=== PATIENT | female | born 1960 | race African-American/Black ===

== ENCOUNTER 2018-07-08 14:51 | Emergency (ER) | payer OTHER ==
[2018-07-08 16:01] LABS: Absolute Lymphocytes (CBC) 3.7 K/uL (0.7-4.9); Absolute Monocytes 1.1 K/uL (0.1-1.3); Absolute Neutrophil 4.7 K/uL (1.8-8.0); Basophils % 1.1 % (0-1.3); Eosinophils % 1.4 % (0-4.4); Lymphocytes % 37.8 % (15.3-44.8); MPV 7.9 fL (7.6-11.3); Monocytes % 11.3 % (3.3-12.3); RBC Red Blood Cell Count 5.07 M/uL (3.86-4.86)
--- NOTE | 2018-07-08 16:08 | RAD REPORT ---
EXAM DESCRIPTION: RAD - Chest Pa And Lat (2 Views) - 07/08/2018 3:39 pm CLINICAL HISTORY: COUGH Chest pain. COMPARISON: No comparisons FINDINGS: The lungs are clear. The heart is normal in size. No displaced fractures. Mild dextroscoli osis of the thoracic spine. IMPRESSION: No acute intrathoracic abnormality. Moderate thoracic dextroscoliosis.
[2018-07-08 16:14] LABS: Potassium 3.4 mmol/L (3.5-5.1)
--- NOTE | 2018-07-08 16:26 | ER ---
Nurse's Notes [facility] Name: Rosana Chávez Age: 57 yrs Sex: Female : 1960 Arrival Date: 07/08/2018 Time: 14:55 Bed 18 Private MD: None, None Diagnosis: Acute upper respiratory infection, unspecified;Hypertension Presentation: 07/08 14:58 Presenting complaint: Patient states: they sent me home from work because my pressure tw2 was high like 160/100 but i started feeling bad with headache, body aches, congestion and a little cough. Transition of care: patient was not received from another setting of care. Onset of symptoms was July 08, 2018. Risk Assessment: Do you want to hurt yourself or someone else? Patient reports no desire to harm self or others. Initial Sepsis Screen: Does the patient meet any 2 criteria? No. Patient's initial sepsis screen is negative. Does the patient have a suspected source of infection? No. Patient's initial sepsis screen is negative. Care prior to arrival: None. 14:58 Method Of Arrival: Ambulatory tw2 14:58 Acuity: FABIOLA 3 tw2 Triage Assessment: 15:00 General: Appears in no apparent distress. Behavior is calm, cooperative, appropriate tw2 for age. Pain: Denies pain. Historical: - Allergies: 15:00 No Known Allergies; tw2 - Home Meds: 15:00 None [Active]; tw2 - PMHx: 15:00 None; tw2 - PSHx: 15:00 part of intestines removed; ; tw2 - Immunization history:: Adult Immunizations. - Social history:: Smoking status: Patient uses tobacco products, smokes one-half pack cigarettes per day. - Ebola Screening: : Patient denies travel to an Ebola-affected area in the 21 days before illness onset. - Family history:: not pertinent. - Hospitalizations: : No recent hospitalization is reported. Screenin:52 Abuse screen: Denies threats or abuse. Nutritional screening: No deficits noted. la1 Tuberculosis screening: No symptoms or risk factors identified. Fall Risk None identified. Assessment: 15:52 General: Appears in no apparent distress. Behavior is calm, cooperative. Pain: Denies la1 pain. Neuro: Level of Consciousness is awake, alert, obeys commands, Oriented to person, place, time, situation. Cardiovascular: Capillary refill < 3 seconds Patient's skin is warm and dry. Respiratory: Reports cough that is non-productive, dry, Airway is patent Trachea midline Respiratory effort is even, unlabored, Respiratory pattern is regular, symmetrical, Breath sounds are clear bilaterally. GI: No signs and/or symptoms were reported involving the gastrointestinal system. : No signs and/or symptoms were reported regarding the genitourinary system. Vital Signs: 14:59 BP 171 / 95; Pulse 96; Resp 18; Temp 97.4(O); Pulse Ox 100% on R/A; Pain 0/10; tw2 16:18 BP 190 / 88; Pulse 73; Resp 18; Pulse Ox 98% on R/A; la1 17:00 BP 167 / 83; Pulse 71; Resp 16; Pulse Ox 98% on R/A; la1 ED Course: 14:55 Patient arrived in ED. sb2 14:56 None, None is Private Physician. sb2 14:59 Triage completed. tw2 14:59 Arm band placed on. tw2 15:18 Serafin Javier MD is Attending Physician. rn 15:30 Urine collected: clean catch specimen, clear. dh3 15:33 Renny Gruber RN is Primary Nurse. la1 15:39 XRAY Chest Pa And Lat (2 Views) In Process Unspecified. EDMS 15:52 Call light in reach. la1 15:52 No provider procedures requiring assistance completed. Inserted saline lock: 22 gauge la1 in left antecubital area, using aseptic technique. Blood collected. 16:16 EKG done, by ED staff, reviewed by Serafin Javier MD. dh3 17:00 IV discontinued, intact, bleeding controlled, No redness/swelling at site. Pressure la1 dressing applied. Administered Medications: No medications were administered Outcome: 16:25 Discharge ordered by . rn 17:00 Discharged to home ambulatory. la1 17:00 Condition: stable 17:00 Condition: good 17:00 Discharge instructions given to patient, Instructed on discharge instructions, follow up and referral plans. medication usage, Demonstrated understanding of instructions, follow-up care, medications, Prescriptions given X 1. 17:00 Patient left the ED. la1 Signatures: Dispatcher [employer] EDMS Serafin Javier MD MD rn Attema, Lee, RN RN la1 Xiao Lowe RN RN tw2 Madeleine Gao dh3 Kim Nunez sb2
--- NOTE | 2018-07-08 16:26 | EDPHYS ---
Physician Documentation [facility] Name: Rosana Chávez Age: 57 yrs Sex: Female : 1960 Arrival Date: 07/08/2018 Time: 14:55 Bed 18 Private MD: None, None ED Physician Serafin Javier HPI: 07/08 15:58 This 57 yrs old Black Female presents to ER via Ambulatory with complaints of High rn Blood Pressure. 15:58 The patient has elevated blood pressure and discovered this work. Onset: The rn symptoms/episode began/occurred at an unknown time. Modifying factors:. Severity of symptoms: At its worst the blood pressure was moderate, in the emergency department the blood pressure is improved. It is unknown whether or not the patient has had similar symptoms in the past. Reports sent home from work today for high blood pressure, reports a couple of days of cough/nasal congestion, chills, no fever today, reports headache at work and that prompted them to check her BP, was high so sent home. No focal neurological complaint. No chest pain. No sob. Does smoke. . Historical: - Allergies: 15:00 No Known Allergies; tw2 - Home Meds: 15:00 None [Active]; tw2 - PMHx: 15:00 None; tw2 - PSHx: 15:00 part of intestines removed; ; tw2 - Immunization history:: Adult Immunizations. - Social history:: Smoking status: Patient uses tobacco products, smokes one-half pack cigarettes per day. - Ebola Screening: : Patient denies travel to an Ebola-affected area in the 21 days before illness onset. - Family history:: not pertinent. - Hospitalizations: : No recent hospitalization is reported. ROS: 15:58 Constitutional: Negative for weight loss, Eyes: Negative for injury, pain, redness, and environmental attorney, Cardiovascular: Negative for chest pain, palpitations, and edema, Respiratory: Negative for shortness of breath, wheezing, and pleuritic chest pain, Abdomen/GI: Negative for abdominal pain, nausea, vomiting, diarrhea, and constipation, MS/Extremity: Negative for injury and deformity, Skin: Negative for injury, rash, and discoloration, Neuro: Negative for weakness, numbness, tingling, and seizure. Exam: 15:58 Constitutional: This is a well developed, well nourished patient who is awake, alert, rn and in no acute distress. Sitting upright on bed, just ambulated back from bathroom. Head/Face: Normocephalic, atraumatic. Neck: Trachea midline, no thyromegaly or masses palpated, and no cervical lymphadenopathy. Supple, full range of motion without nuchal rigidity, or vertebral point tenderness. No Meningismus. Cardiovascular: Regular rate and rhythm with a normal S1 and S2. No gallops, murmurs, or rubs.No JVD. No pulse deficits. Respiratory: Lungs have equal breath sounds bilaterally, clear to auscultation. No rales, rhonchi or wheezes noted. No increased work of breathing, no retractions or nasal flaring. Abdomen/GI: Soft, non-tender, with normal bowel sounds. No distension or tympany. No guarding or rebound. No evidence of tenderness throughout. MS/ Extremity: Pulses equal, no cyanosis. Neurovascular intact. Full, normal range of motion. Equal circumference. Neuro: Awake and alert, GCS 15, oriented to person, place, time, and situation. Cranial nerves II-XII grossly intact. Motor strength 5/5 in all extremities. Sensory grossly intact. Cerebellar exam normal. Normal gait. Vital Signs: 14:59 BP 171 / 95; Pulse 96; Resp 18; Temp 97.4(O); Pulse Ox 100% on R/A; Pain 0/10; tw2 16:18 BP 190 / 88; Pulse 73; Resp 18; Pulse Ox 98% on R/A; la1 17:00 BP 167 / 83; Pulse 71; Resp 16; Pulse Ox 98% on R/A; la1 MDM: 15:18 Patient medically screened. rn 16:23 Differential diagnosis: hypertensive crisis, Malignant HTN, upper respiratory rn infection. Data reviewed: vital signs, nurses notes, lab test result(s), EKG, radiologic studies, plain films, and as a result, I will discharge patient. Counseling: I had a detailed discussion with the patient and/or guardian regarding: the historical points, exam findings, and any diagnostic results supporting the discharge/admit diagnosis, lab results, radiology results, the need for outpatient follow up, to return to the emergency department if symptoms worsen or persist or if there are any questions or concerns that arise at home. Counseling: I had a detailed discussion with the patient and/or guardian regarding: smoking cessation. Special discussion: I discussed with the patient/guardian in detail that at this point there is no indication for admission to the hospital. It is understood, however, that if the symptoms persist or worsen the patient needs to return immediately for re-evaluation. 07/08 15:27 Order name: CBC with Diff rn 07/08 15:27 Order name: Basic Metabolic Panel rn 07/08 15:27 Order name: Urine Microscopic Only rn 07/08 15:27 Order name: Flu; Complete Time: 16:22 rn 07/08 15:27 Order name: Strep; Complete Time: 16:15 rn 07/08 15:28 Order name: CBC with Automated Diff; Complete Time: 16:15 EDDC 07/08 15:27 Order name: IV Start; Complete Time: 15:53 rn 07/08 15:27 Order name: Urine Dipstick-Ancillary (obtain specimen); Complete Time: 15:46 rn 07/08 15:27 Order name: XRAY Chest Pa And Lat (2 Views); Complete Time: 16:15 rn 07/08 15:28 Order name: Basic Metabolic Panel; Complete Time: 16:15 EDDC 07/08 15:56 Order name: Urine Dipstick--Ancillary (enter results) 07/08 15:56 Order name: Urine --Ancillary (enter results) 07/08 16:12 Order name: Throat Culture [facility] 07/08 15:27 Order name: EKG - Nurse/Tech; Complete Time: 16:05 rn Administered Medications: No medications were administered Disposition: 07/08/18 16:25 Discharged to Home. Impression: Acute upper respiratory infection, unspecified, Hypertension. - Condition is Stable. - Discharge Instructions: Hypertension, Upper Respiratory Infection, Adult. - Prescriptions for Zithromax Z- Wesley 250 mg Oral Tablet - take 1 tablet by ORAL route as directed for 5 days Day 1 - take two (2) tablets one time. Day 2, 3, 4 , 5 take one (1) tablet once daily.; 6 tablet. - Medication Reconciliation Form, Thank You Letter, Antibiotic Education, Prescription Opioid Use form. - Follow up: Private Physician; When: As needed; Reason: Recheck today's complaints, Re-evaluation by your physician. - Problem is new. - Symptoms have improved. Signatures: Dispatcher [employer] EDDC Serafin Javier MD MD rn Attema, Lee, RN RN la1 Xiao Lowe RN RN tw2 Corrections: (The following items were deleted from the chart) 17:00 16:25 07/08/2018 16:25 Discharged to Home. Impression: Acute upper respiratory la1 infection, unspecified; Hypertension. Condition is Stable. Forms are Medication Reconciliation Form, Thank You Letter, Antibiotic Education, Prescription Opioid Use. Follow up: Private Physician; When: As needed; Reason: Recheck today's complaints, Re-evaluation by your physician. Problem is new. Symptoms have improved. rn
[2018-07-08 16:36] LABS: Urine Blood 2+ (NEG); Urine Glucose NEGATIVE (NEG); Urine Protein NEGATIVE (NEG)
[2018-07-08 16:44] LABS: Urine Bacteria NONE SEEN /HPF (<20)
[2018-07-08 16:45] LABS: Urine Culture Reflex Order NOT NEEDED
== END 2018-07-08 17:00 | disposition home or self-care (01) ==
LOC: ER 14:51
DX: J06.9 Acute upper respiratory infection, unspecified (principal); Z72.0 Tobacco use
CPT/HCPCS: 36415; 71046; 80048; 81003; 81015; 81025; 85025; 87070; 87081; 87804; 99284

== ENCOUNTER 2022-07-04 01:27 | Emergency (ER) | payer OTHER, SELFPAY ==
[2022-07-04] MEDS ORDERED: OXYMETAZOLINE HCL 0.05% 15ML NAS ONE (01:42)
--- NOTE | 2022-07-04 02:41 | EDPHYS ---
Physician Documentation [facility] Name: Rosana Chávez Age: 61 yrs Sex: Female : 1960 Arrival Date: 07/04/2022 Time: 01:29 Bed 5 Private MD: ED Physician Mariano Celestin HPI: 07/04 03:28 This 61 yrs old Black Female presents to ER via EMS with complaints of epistaxis. rt 03:28 The patient presents with a nose bleed, that is apparently anterior, from the left rt nare. Onset: The symptoms/episode began/occurred yesterday. Modifying factors: The symptoms are alleviated by nothing. the symptoms are aggravated by nothing. Associated signs and symptoms: The patient has no apparent associated signs or symptoms. Severity of symptoms: At their worst the symptoms were mild. Patient presents to the ED with epistaxis to the left nare. This started yesterday, resolved spontaneously, returned again overnight. The patient denies any trauma to the nose. Denies any feelings of lightheadedness. Denies other acute complaints at this time, symptoms are mild in severity, no other aggravating alleviating factors. Historical: - Allergies: 01:35 No Known Allergies; aa9 - Home Meds: 01:35 None [Active]; aa9 - PMHx: 01:35 None; aa9 - PSHx: 01:35 None; aa9 - Immunization history:: Client reports receiving the 2nd dose of the Covid vaccine. - Social history:: Smoking status: Patient reports the use of cigarette tobacco products, smokes one-half pack cigarettes per day. - Family history:: not pertinent. ROS: 03:28 Constitutional: Negative for fever, chills, and weight loss, Eyes: Negative for injury, rt pain, redness, and discharge, Cardiovascular: Negative for chest pain, palpitations, and edema, Respiratory: Negative for shortness of breath, cough, wheezing, and pleuritic chest pain, Abdomen/GI: Negative for abdominal pain, nausea, vomiting, diarrhea, and constipation, Skin: Negative for injury, rash, and discoloration, Neuro: Negative for headache, weakness, numbness, tingling, and seizure, Psych: Negative for depression, anxiety, suicide ideation, homicidal ideation, and hallucinations. 03:28 ENT: Positive for nose bleed, Negative for injury or acute deformity. Exam: 03:28 ENT: Mild amount of bleeding out of the left nare, appears to be anterior, no obvious rt durably. Vital Signs: 01:33 BP 135 / 88; Pulse 99; Resp 18 A; Pulse Ox 99% on R/A; Weight 61.23 kg (R); Height 5 aa9 ft. 5 in. (165.10 cm) (R); 02:50 BP 161 / 81; Pulse 89; Resp 19 S; Pulse Ox 99% on R/A; aa9 01:33 Body Mass Index 22.46 (61.23 kg, 165.10 cm) aa9 MDM: 01:32 Patient medically screened. rt 03:31 Differential diagnosis: epistaxis r/t trauma, spontaneous epistaxis. Data reviewed: rt vital signs, nurses notes. ED course: Patient presents to the ED with epistaxis, resolved with Afrin. Patient was observed for a brief period in the ED with no recurrence. Patient is stable for outpatient care, discussed home management. Does not require nasal packing at this time, patient will return for epistaxis that cannot be managed at home.. Administered Medications: 01:43 Drug: Afrin (oxymetazoline) Drops (0.05 %) 3 sprays Route: Intranasal; Site: both nares;kl Disposition Summary: 07/04/22 02:41 Discharge Ordered Location: Home rt Problem: new rt Symptoms: are resolved rt Condition: Stable rt Diagnosis - Epistaxis rt Followup: rt - With: Private Physician - When: 2 - 3 days - Reason: Discharge Instructions: - Discharge Summary Sheet rt - Nosebleed, Adult rt Forms: - Medication Reconciliation Form rt - Thank You Letter rt - Antibiotic Education rt - Prescription Opioid Use rt Signatures: Erika Avila, RN RN Luzma Mckeon RN RN aa9 Mariano Celestin MD MD rt
--- NOTE | 2022-07-04 02:41 | ER ---
Nurse's Notes [facility] [place], [place] Name: Rosana Chávez Age: 61 yrs Sex: Female : 1960 Arrival Date: 07/04/2022 Time: 01:29 Bed 5 Private MD: Diagnosis: Epistaxis Presentation: 07/04 01:33 Chief complaint: EMS states: had a nose bleed around noon she got it to stop then about aa9 an hour ago it started again and she couldn't get it to stop otherwise stable, no trauma. Coronavirus screen: Vaccine status: Patient reports receiving the 2nd dose of the covid vaccine. Ebola Screen: No symptoms or risks identified at this time. 01:33 Method Of Arrival: EMS: [facility] aa9 01:36 Initial Sepsis Screen: Does the patient meet any 2 criteria? No. Patient's initial aa9 sepsis screen is negative. Does the patient have a suspected source of infection? No. Patient's initial sepsis screen is negative. Risk Assessment: Do you want to hurt yourself or someone else? Patient reports no desire to harm self or others. Onset of symptoms was July 04, 2022. 01:36 Acuity: FABIOLA 3 aa9 Triage Assessment: 01:35 General: Appears in no apparent distress. uncomfortable, slender, Behavior is calm, aa9 cooperative, appropriate for age. Pain: Denies pain. EENT: Nares with bleeding noted. Neuro: Level of Consciousness is awake, alert, obeys commands, Oriented to person, place, time, situation. Cardiovascular: Capillary refill < 3 seconds Patient's skin is warm and dry. Respiratory: Airway is patent Respiratory effort is even, unlabored. GI: No signs and/or symptoms were reported involving the gastrointestinal system. : No signs and/or symptoms were reported regarding the genitourinary system. Derm: Skin is healthy with good turgor. Musculoskeletal: No signs and/or symptoms reported regarding the musculoskeletal system. Historical: - Allergies: 01:35 No Known Allergies; aa9 - Home Meds: 01:35 None [Active]; aa9 - PMHx: 01:35 None; aa9 - PSHx: 01:35 None; aa9 - Immunization history:: Client reports receiving the 2nd dose of the Covid vaccine. - Social history:: Smoking status: Patient reports the use of cigarette tobacco products, smokes one-half pack cigarettes per day. - Family history:: not pertinent. Screenin:36 Abuse screen: Denies threats or abuse. Denies injuries from another. Nutritional aa9 screening: No deficits noted. Tuberculosis screening: No symptoms or risk factors identified. 02:49 [facility] ED Fall Risk Assessment (Adult) History of falling in the last 3 months, aa9 including since admission No falls in past 3 months (0 pts) Confusion or Disorientation No (0 pts) Intoxicated or Sedated No (0 pts) Impaired Gait No (0 pts) Mobility Assist Device Used No (0 pt) Altered Elimination No (0 pt) Score/Fall Risk Level 0 - 2 = Low Risk. Assessment: 02:50 Reassessment: Patient appears in no apparent distress at this time. Patient is alert, aa9 oriented x 3, equal unlabored respirations, skin warm/dry/pink. Patient denies pain at this time. Vital Signs: 01:33 BP 135 / 88; Pulse 99; Resp 18 A; Pulse Ox 99% on R/A; Weight 61.23 kg (R); Height 5 aa9 ft. 5 in. (165.10 cm) (R); 02:50 BP 161 / 81; Pulse 89; Resp 19 S; Pulse Ox 99% on R/A; aa9 01:33 Body Mass Index 22.46 (61.23 kg, 165.10 cm) aa9 ED Course: 01:29 Patient arrived in ED. wm 01:31 Mariano Celestin MD is Attending Physician. rt 01:33 Luzma Herrera, RN is Primary Nurse. aa9 01:36 Triage completed. aa9 01:36 Arm band placed on. aa9 01:36 Patient has correct armband on for positive identification. Bed in low position. Call aa9 light in reach. quality assurance monitor on. Pulse ox on. 02:49 No provider procedures requiring assistance completed. Patient did not have IV access aa9 during this emergency room visit. Administered Medications: 01:43 Drug: Afrin (oxymetazoline) Drops (0.05 %) 3 sprays Route: Intranasal; Site: both nares;kl Medication: 01:36 VIS not applicable for this client. aa9 Outcome: 02:41 Discharge ordered by . rt 02:49 Discharged to home ambulatory. aa9 02:49 Condition: stable 02:49 Discharge instructions given to patient, Instructed on discharge instructions, follow up and referral plans. medication usage, Demonstrated understanding of instructions, follow-up care, medications, Prescriptions given X 1. 02:50 Patient left the ED. aa9 Signatures: Erika Avila RN Yasmine Esposito Aylin, RN RN aa9 Mariano Celestin MD MD rt
[2022-07-04 03:13] VITALS: O2SAT 99
[2022-07-04 03:21] VITALS: BP 161/81
== END 2022-07-04 02:50 | disposition home or self-care (01) ==
LOC: ER 01:27
DX: R04.0 Epistaxis (principal); F17.210 Nicotine dependence, cigarettes, uncomplicated
CPT/HCPCS: 99284

== ENCOUNTER 2023-09-30 16:55 | Inpatient (IN) | payer OTHER, SELFPAY ==
[2023-09-30] MEDS ORDERED: MORPHINE 4 MG/ML SYR ONE ×2 (18:44→22:04)
[2023-09-30] MEDS ORDERED: CLINDAMYCIN 900MG/D5W 900 MG/50 ML IVPB IV ONE (18:44)
[2023-09-30] MEDS ORDERED: NA CHLORIDE 0.9% 1,000 ML ONE (18:44)
--- NOTE | 2023-09-30 18:45 | RAD REPORT ---
EXAM DESCRIPTION: RAD - Chest Single View - 09/30/2023 6:28 pm CLINICAL HISTORY: SOB COMPARISON: Chest Pa And Lat (2 Views) dated 07/08/2018 FINDINGS: Lines: None. Lungs: Irregular opacities present at the right lung base . Pleural: No significant pleural effusions or pneumothorax. Cardiac: The heart size is within normal limits. Mediastinum: Within normal limits. Bones: No acute fractures. Other: None IMPRESSION: Mild right basilar airspace disease could reflect mild pneumonia or pneumonitis.
[2023-09-30 18:48] LABS: Absolute Basophils 0.1 K/uL (0-0.5); Absolute Monocytes 0.9 K/uL (0.1-1.3); Basophils % 0.3 % (0-1.3); Hematocrit 39.9 % (36.0-45.0); Hemoglobin 13.2 g/dL (12.0-15.0); Lymphocytes % 3.5 % (15.3-44.8); MCH 29.7 pg (27.0-35.0); MCHC 33.2 g/dL (32.0-36.0); MCV 89.4 fL (80-100); MPV 7.9 fL (7.6-11.3); Monocytes % 3.4 % (3.3-12.3); Neutrophils % 92.8 % (41.7-73.7); Platelets 502 thou/uL (152-406); RBC Red Blood Cell Count 4.46 M/uL (3.86-4.86); Red Cell Distribution Width 15.5 % (12.1-15.2)
[2023-09-30 18:55] LABS: PT Prothrombin Time 14.1 SECONDS (9.5-12.5); PTT, Activated Partial Thromb 31.4 SECONDS (24.3-36.9); Protime INR 1.29
[2023-09-30 19:04] LABS: Monoscreen NEG (NEG)
[2023-09-30 19:15] LABS: ALT/SGPT < 10 U/L (13-56); AST/SGOT 14 U/L (15-37); Albumin 2.9 g/dL (3.4-5.0); Albumin/Globulin Ratio 0.6 (1.1-1.8); Alkaline Phosphatase 125 U/L (45-117); Anion Gap 10.8 mEq/L (5.0-15.0); BUN Blood Urea Nitrogen 13 mg/dL (7-18); Bicarbonate 27 mEq/L (21-32); Bilirubin Total 1.6 mg/dL (0.2-1.0); Globulin 4.9 g/dL (2.3-3.5); Glomerular Filtration Rate 59 ml/min (=/>90); Glucose Level 106 mg/dL (74-106); Potassium 2.8 mEq/L (3.5-5.1); Protein, Total 7.8 g/dL (6.4-8.2); Sodium Level 136 mEq/L (136-145)
[2023-09-30 19:52] LABS: Blood Morphology Comment NOT SEEN (NOT SEEN); Platelet Estimate INCR; White Blood Cell Scan OK (OK)
[2023-09-30] MEDS ORDERED: POTASSIUM 25 MEQ EFFERV TAB ONE ×2 (20:07→22:04)
--- NOTE | 2023-09-30 21:31 | RAD REPORT ---
EXAM DESCRIPTION: CT - Soft Tissue Neck W/Contr CLINICAL HISTORY: SWELLING COMPARISON: No comparisons TECHNIQUE All CT scans are performed using dose optimization technique as appropriate and may includ e automated exposure control or mA/KV adjustment according to patient size. FINDINGS: Prevertebral edema is present as well as thickening and enlargement of the epiglottis. No abscess identified. Stranding and fluid is present around the left submandibular gland. There is also fluid extending into the musculature and deep compartments of the left neck including around the adia rnocleidomastoid and carotid space . Cervical chain lymphadenopathy is present that is probably react yakov. The parotid glands are unremarkable. Patent jugular veins. Laryngeal edema is present. Left-zana ed anterolateral skin thickening could indicate a cellulitis. Multiple periapical lucencies associated with several maxillary and mandibular teeth. No fractures id entified. Paranasal sinuses are well aerated. No mastoid effusion. Intracranial contents are partiall y imaged but grossly unremarkable. Cervical spondylosis.No thyroid nodules. IMPRESSION: Prevertebral edema and epiglottis thickening concerning for epiglottitis. Fairly diffuse cutaneous and subcutaneous thickening could indicate a cellulitis. Edema extends into the deep tissu es of the neck and surrounds the left submandibular gland and sternocleidomastoid muscle. No abscess identified. Airway narrowing is present. No abscess identified.
--- NOTE | 2023-09-30 21:34 | RAD REPORT ---
EXAM DESCRIPTION: CT - Thorax W/ Con - 09/30/2023 9:16 pm CLINICAL HISTORY: chest swelling COMPARISON: No comparisons TECHNIQUE: Dynamically enhanced axial 3 mm thick images of the chest were obtained during administra tion of <100> mL Isovue 370 IV contrast. Coronal and oblique reconstruction images were generated and reviewed. Exam utilizes a protocol for optimal evaluation of pulmonary arterial tree. Maximum intensity projections 3D imaging was utilized All CT scans are performed using dose optimization technique as appropriate and may include automated exposure control or mA/KV adjustment according to patient size. FINDINGS: Chest Wall: Edema within the neck extends down into the upper anterior chest. There is flu id interdigitating between the platysma muscle and left sternocleidomastoid. No abscess identified. 8 mm low-density left thyroid nodule which does not require follow-up. Lungs: Mild paraseptal emphysema. Pleura: No significant effusions or pneumothorax. Mediastinum/vicky: There is some edema and stranding extending into the superior mediastinum. No absce ss or gas identified. Pulmonary arteries/Aorta: No filling defect identified. No aortic aneurysm. Heart: No significant pericardial effusion. Normal heart size. Scattered coronary artery calcificatio ns. Upper abdomen: No acute abnormality. Bones: No acute abnormality. IMPRESSION: The inflammatory process in the neck extends into the superior mediastinum, midline ante rior chest wall, and left supraclavicular region. No soft tissue gas or abscess identified. The lungs are clear .
--- NOTE | 2023-09-30 21:59 | EDPHYS ---
Physician Documentation [facility] Name: Roasna Chávez Age: 62 yrs Sex: Female : 1960 Arrival Date: 09/30/2023 Time: 16:55 Bed 17 Private MD: ED Physician Nikko Leslie HPI: 09/29 18:00 This 62 yrs old Black Female presents to ER via Ambulatory with complaints of Sore cp Throat. 18:00 The patient presents with sore throat, dysphagia, of both solids and liquids. The cp patient describes throat pain as constant. 18:00 Onset: The symptoms/episode began/occurred 2 day(s) ago. cp 18:00 Associated signs and symptoms: Pertinent negatives chest pain, earache, fever, flu-like cp symptoms, headache. Historical: - Allergies: 17:19 No Known Allergies; ko1 - Home Meds: 17:19 None [Active]; ko1 - PMHx: 17:19 None; ko1 - PSHx: 17:19 section; ko1 - Immunization history:: Adult Immunizations unknown. - Social history:: Smoking status: Patient reports the use of cigarette tobacco products, smokes one pack cigarettes per day. ROS: 18:05 ENT: Positive for difficulty swallowing, sore throat, Negative for drainage from cp ear(s), ear pain, difficulty handling secretions, 18:05 Respiratory: Negative for cough, shortness of breath, wheezing, cp 18:05 Constitutional: Positive for poor PO intake, Negative for body aches, chills, fever, cp 18:05 Eyes: Negative for injury, pain, redness, and discharge, cp 18:05 Neck: Positive for swelling, tenderness, Negative for stiffness, 18:05 Cardiovascular: Negative for chest pain, palpitations, 18:05 Abdomen/GI: Negative for abdominal pain, vomiting, diarrhea, constipation, 18:05 Neuro: Negative for altered mental status, dizziness, headache, numbness, syncope, cp weakness, 18:05 All other systems are negative, cp Exam: 18:04 ECG was reviewed by the Attending Physician. cp 18:10 Constitutional: The patient appears in no acute distress, alert, awake, cp non-diaphoretic, non-toxic, well developed, well nourished, uncomfortable, 18:10 Head/face: Noted is swelling, that is mild, of the submental, cp 18:10 Eyes: Periorbital structures: appear normal, Pupils: equal, round, and reactive to light and accomodation, Extraocular movements: intact throughout, Conjunctiva: normal, no exudate, no injection, Sclera: no appreciated abnormality, Lids and lashes: appear normal, bilaterally, 18:10 ENT: External ear(s): are unremarkable, Nose: is normal, Mouth: Lips: moist, Oral mucosa: moist, Tongue: is normal, Posterior pharynx: Airway: patent, Tonsils: bilaterally enlarged, erythema, that is moderate, 18:10 Neck: External neck: swelling, of the anterior neck, ROM/movement: Meningeal signs: are not present, nuchal rigidity, is not appreciated, 18:10 Chest/axilla: Inspection: mild swelling and erythema noted upper chest wall, Palpation: cp tenderness, 18:10 Cardiovascular: Rate: tachycardic, Rhythm: regular, Edema: is not appreciated, JVD: is not appreciated, 18:10 Respiratory: the patient does not display signs of respiratory distress, Respirations: normal, no use of accessory muscles, no retractions, labored breathing, is not present, Breath sounds: are clear throughout, no decreased breath sounds, no stridor, no wheezing, 18:10 Abdomen/GI: Inspection: abdomen appears normal, Palpation: abdomen is soft and non-tender, in all quadrants, 18:10 Neuro: Orientation: to person, place \T\ time. Mentation: is normal, Motor: moves all fours, strength is normal, Vital Signs: 17:17 BP 176 / 94; Pulse 98; Resp 16; Temp 98.1; Pulse Ox 99% ; ko1 17:47 BP 179 / 80; Pulse 105; Resp 18; Pulse Ox 99% ; tl4 18:30 BP 158 / 83; Pulse 105; Resp 20; Pulse Ox 98% on R/A; tl4 19:00 BP 157 / 57; Pulse 104; Resp 21; Pulse Ox 98% on R/A; tl4 20:00 BP 169 / 83; Pulse 105; Resp 17; Pulse Ox 98% on R/A; tl4 21:13 BP 165 / 77; Pulse 98; Resp 18; Pulse Ox 99% on R/A; tl4 22:00 BP 125 / 77; Pulse 55; Resp 16; Pulse Ox 100% ; tl4 22:30 BP 146 / 60; Pulse 104; Resp 25; Pulse Ox 96% ; tl4 23:00 BP 116 / 67; Pulse 105; Resp 23; Pulse Ox 95% ; tl4 23:40 BP 118 / 61; Pulse 105; Resp 16; Temp 98.1(O); Pulse Ox 96% ; Pain 0/10; tl4 23:40 Pain Scale: Adult tl4 MDM: 17:24 Patient medically screened. cp 21:55 Data reviewed: vital signs, nurses notes, lab test result(s), EKG, radiologic studies, cp CT scan. 21:55 Management of patient was discussed with the following: Contract Implementation Analyst: DR Gao, ENT, cp will consult after discussion of today's testing and patient to be admitted to hospitalist, DR Kearney. 09/29 17:50 Order name: Blood Culture Adult (2) cp 09/29 17:50 Order name: CBC with Diff; Complete Time: 21:46 09/29 18:52 Interpretation: Normal except: WBC 28.00; PLT 502; RDW 15.5; SHILA% 92.8; LYM% 3.5; NEUT cp A 26.0. 09/29 17:50 Order name: CMP; Complete Time: 19:20 09/29 19:21 Interpretation: Normal except: K 2.8; CRE 1.07; GFR 59; AST 14; ALT < 10; ALK 125; cp BILIT 1.6; CA 8.4; ALB 2.9; GLOB 4.9; A/G 0.6. 09/29 17:50 Order name: Lactate w/ 2H reflex if indic.; Complete Time: 19:10 09/29 19:10 Interpretation: Reviewed. 09/29 17:50 Order name: Protime (+inr); Complete Time: 19:10 cp 09/29 17:50 Order name: Ptt, Activated; Complete Time: 19:10 cp 09/29 17:50 Order name: Strep; Complete Time: 19:20 cp 09/29 22:58 Interpretation: Reviewed. 09/29 17:50 Order name: [place] Screen Profile; Complete Time: 19:10 cp 09/29 19:14 Order name: Glucose, Ancillary Testing; Complete Time: 19:20 EDMS 09/29 19:52 Order name: CBC Smear Scan; Complete Time: 21:46 EDMS 09/29 17:50 Order name: Chest Single View XRAY; Complete Time: 18:52 cp 09/29 17:53 Order name: CT Soft Tissue Neck W/contr; Complete Time: 21:46 cp 09/29 17:53 Order name: CT Chest W/ Con; Complete Time: 21:46 cp 09/29 17:50 Order name: EKG; Complete Time: 17:51 cp 09/29 17:50 Order name: Accucheck; Complete Time: 19:04 cp 09/29 17:50 Order name: Cardiac monitoring; Complete Time: 18:05 cp 09/29 17:50 Order name: EKG - Nurse/Tech; Complete Time: 19:04 cp 09/29 17:50 Order name: IV Saline Lock - Large Bore; Complete Time: 18:46 cp 09/29 17:50 Order name: Labs collected and sent; Complete Time: 18:46 cp 09/29 17:50 Order name: O2 Per Protocol; Complete Time: 18:05 cp 09/29 17:50 Order name: O2 Sat Monitoring; Complete Time: 18:05 cp 09/29 17:50 Order name: Vital Signs; Complete Time: 18:05 cp EC:04 Rate is 102 beats/min. Rhythm is regular. [place] interval is normal. QRS interval is cp normal. T waves are Inverted in lead aVR. Interpreted by me. Reviewed by me. Administered Medications: 19:04 Drug: NS 0.9% IV 1000 ml IV at 999 ml/hr Per protocol; 1000 mL bolus Route: IV; Rate: tl4 999 ml/hr; Site: left antecubital; Delivery: Primary tubing; 21:37 Follow up: Response: No adverse reaction; IV Status: Completed infusion; IV Intake: tl4 1000ml 19:05 Drug: morphine IVP or IV 4 mg IVP once over 4 mins Route: IVP; Infused Over: 4 mins; tl4 Site: left antecubital; 21:36 Follow up: Response: No adverse reaction; Pain is decreased tl4 19:05 Drug: Clindamycin IVPB 900 mg IVPB once over 30 mins; (mix in 50 mL) Route: IVPB; tl4 Infused Over: 30 mins; Site: left antecubital; Delivery: Dial-a-flow; 21:37 Follow up: Response: No adverse reaction; IV Status: Completed infusion; IV Intake: tl4 100ml 20:38 Drug: Potassium PO Effervescent Tablet 50 mEq PO once; dissolve in 4 ounces of water or tl4 juice Route: PO; 21:36 Follow up: Response: No adverse reaction tl4 22:26 Not Given (pt can't tolerate itt): potassiumeffervescent tablet 25 meq PO once; tl4 dissolve in 4 ounces of water or juice 22:27 Drug: Ampicillin-Sulbactam Sodium IVPB 3 grams IVPB once over 30 mins; (mix in 100 mL tl4 NS) Route: IVPB; Infused Over: 30 mins; Site: right antecubital; Delivery: Dial-a-flow; 23:45 Follow up: Response: No adverse reaction; IV Status: Completed infusion; IV Intake: tl4 100ml 23:44 Drug: Ondansetron IVP 4 mg IVP once; over 2 minutes Route: IVP; Infused Over: 2 mins; tl4 Site: right antecubital; 23:46 Follow up: Response: No adverse reaction; Nausea is decreased tl4 23:45 Drug: morphine IVP or IV 4 mg IVP once over 4 mins Route: IVP; Infused Over: 4 mins; tl4 Site: right antecubital; 23:46 Follow up: Response: No adverse reaction; Pain is decreased tl4 23:45 Drug: Potassium Chloride IV 20 mEq IV at calculated rate once; administer over 1-2 tl4 hours Route: IV; Rate: calculated rate; Site: right antecubital; 09/30 00:15 Follow up: Response: No adverse reaction; IV Status: Completed infusion; IV Intake: tl4 100ml 09/29 23:53 Drug: Decadron - Dexamethasone IVP 10 mg IVP once Route: IVP; Site: right antecubital; tl4 09/30 00:15 Follow up: Response: No adverse reaction tl4 Disposition Summary: 09/30/23 21:58 Hospitalization Ordered Notes: Hospitalization Status: Inpatient Admission cp Provider: Yury Kearney cp Condition: Serious cp Problem: new cp Symptoms: have improved cp Bed/Room Type: Standard cp Location: Intensive Care Unit(09/30/23 23:18) rv1 Room Assignment: 3-(09/30/23 23:18) rv1 Diagnosis - Acute epiglottitis without obstruction cp - Sepsis, unspecified organism cp Forms: - Medication Reconciliation Form cp - SBAR form cp - Leadership Thank You Letter cp Signatures: Dispatcher [employer] EDMS Nikko Dallas PA PA cp Katelin Nation, RN RN ko1 Stephanie Chew rv1 Marcio Serrano RN RN tl4 Corrections: (The following items were deleted from the chart) 09/29 19:06 17:50 Urinalysis+U.LAB.BRZ ordered. EDMN EDMN 23: 21:58 Telemetry/MedSurg (Inpatient) rv1 23:18 21:58 cp rv1
--- NOTE | 2023-09-30 21:59 | ER ---
Nurse's Notes [facility] Name: Rosana Chávez Age: 62 yrs Sex: Female : 1960 Arrival Date: 09/30/2023 Time: 16:55 Bed 17 Private MD: Diagnosis: Acute epiglottitis without obstruction;Sepsis, unspecified organism Presentation: 09/29 17:17 Chief complaint: Patient states: felt throat getting irritated on , just ko1 getting worse. No other symptoms. Coronavirus screen: At this time, the client does not indicate any symptoms associated with coronavirus-19. Ebola Screen: No symptoms or risks identified at this time. Initial Sepsis Screen: Does the patient meet any 2 criteria? No. Patient's initial sepsis screen is negative. Does the patient have a suspected source of infection? No. Patient's initial sepsis screen is negative. Risk Assessment: Do you want to hurt yourself or someone else? Patient reports no desire to harm self or others. Onset of symptoms is unknown. 17:17 Method Of Arrival: Ambulatory ko1 17:17 Acuity: FABIOLA 4 ko1 Triage Assessment: 17:19 General: Appears ill, Behavior is calm, cooperative, appropriate for age. Pain: ko1 Complains of pain in sore throat. EENT: Throat is reddened. Historical: - Allergies: 17:19 No Known Allergies; ko1 - Home Meds: 17:19 None [Active]; ko1 - PMHx: 17:19 None; ko1 - PSHx: 17:19 section; ko1 - Immunization history:: Adult Immunizations unknown. - Social history:: Smoking status: Patient reports the use of cigarette tobacco products, smokes one pack cigarettes per day. Screenin:07 [facility] ED Fall Risk Assessment (Adult) History of falling in the last 3 months, tl4 including since admission No falls in past 3 months (0 pts) Confusion or Disorientation No (0 pts) Intoxicated or Sedated No (0 pts) Impaired Gait No (0 pts) Mobility Assist Device Used No (0 pt) Altered Elimination No (0 pt) Score/Fall Risk Level 0 - 2 = Low Risk Oriented to surroundings, Maintained a safe environment, Educated pt \T\ family on fall prevention, incl call for assistance when getting out of bed, Assessed \T\ reinforced patient's understanding of fall precautions, Hourly rounding (assess needs \T\ fall precautionary measures) done, Used ambulatory aids as needed (educated on \T\ assisted with), Used gait belt as appropriate. Abuse screen: Denies threats or abuse. Denies injuries from another. Nutritional screening: No deficits noted. Tuberculosis screening: No symptoms or risk factors identified. 19:09 [facility] ED Fall Risk Assessment (Adult) Score/Fall Risk Level 0 - 2 = Low Risk tl4 Provided non-skid footwear. Assessment: 17:45 General: Appears uncomfortable, Behavior is calm, cooperative. Pain: Complains of pain tl4 in throat. Neuro: Level of Consciousness is awake, alert, obeys commands, Oriented to person, place, time, situation, Moves all extremities. Denies blurred vision headache. Cardiovascular: Denies chest pain, palpitations, syncope, Capillary refill < 3 seconds Patient's skin is warm and dry. Respiratory: Reports cough that is Airway is patent Respiratory effort is even, unlabored, Respiratory pattern is regular, symmetrical, Breath sounds are clear bilaterally. Denies shortness of breath labored breathing. GI: No deficits noted. No signs and/or symptoms were reported involving the gastrointestinal system. : No deficits noted. No signs and/or symptoms were reported regarding the genitourinary system. EENT: Reports difficulty swallowing. Derm: No deficits noted. No signs and/or symptoms reported regarding the dermatologic system. 19:07 Reassessment: No changes from previously documented assessment. Patient and/or family tl4 updated on plan of care and expected duration. Pain level reassessed. Patient is alert, oriented x 3, equal unlabored respirations, skin warm/dry/pink. Pain is improving. Pt is able to talk and open her mouth more easily. 21:26 Reassessment: Patient and/or family updated on plan of care and expected duration. Pain tl4 level reassessed. Patient is alert, oriented x 3, equal unlabored respirations, skin warm/dry/pink. Pt states she feels better, able to speak and open mouth better. 21:33 Reassessment: Daughter Rina [phone]. tl4 23:44 Reassessment: Patient and/or family updated on plan of care and expected duration. Pain tl4 level reassessed. Patient is alert, oriented x 3, equal unlabored respirations, skin warm/dry/pink. 09/30 00:13 Reassessment: Report to ABDIAZIZ Sanderson in ICU. tl4 Vital Signs: 09/29 17:17 BP 176 / 94; Pulse 98; Resp 16; Temp 98.1; Pulse Ox 99% ; ko1 17:47 BP 179 / 80; Pulse 105; Resp 18; Pulse Ox 99% ; tl4 18:30 BP 158 / 83; Pulse 105; Resp 20; Pulse Ox 98% on R/A; tl4 19:00 BP 157 / 57; Pulse 104; Resp 21; Pulse Ox 98% on R/A; tl4 20:00 BP 169 / 83; Pulse 105; Resp 17; Pulse Ox 98% on R/A; tl4 21:13 BP 165 / 77; Pulse 98; Resp 18; Pulse Ox 99% on R/A; tl4 22:00 BP 125 / 77; Pulse 55; Resp 16; Pulse Ox 100% ; tl4 22:30 BP 146 / 60; Pulse 104; Resp 25; Pulse Ox 96% ; tl4 23:00 BP 116 / 67; Pulse 105; Resp 23; Pulse Ox 95% ; tl4 23:40 BP 118 / 61; Pulse 105; Resp 16; Temp 98.1(O); Pulse Ox 96% ; Pain 0/10; tl4 23:40 Pain Scale: Adult tl4 ED Course: 16:59 Patient arrived in ED. rg4 17:19 Triage completed. ko1 17:19 Arm band placed on right wrist. Patient placed in waiting room, Patient notified of ko1 wait time. 17:22 Nikko Leslie MD is Attending Physician. joselyn 17:23 Nikko Dallas PA is PHCP. cp 17:23 Nikko Leslie MD is Attending Physician. cp 17:45 Marcio Serrano, ABDIAZIZ is Primary Nurse. tl4 18:29 Chest Single View XRAY In Process Unspecified. EDMS 18:46 [place] Screen Profile Sent. tl4 18:46 Strep Sent. tl4 18:46 Blood Culture Adult (2) Sent. tl4 18:46 CBC with Diff Sent. tl4 18:46 CMP Sent. tl4 18:46 Lactate w/ 2H reflex if indic. Sent. tl4 18:46 Ptt, Activated Sent. tl4 18:46 Protime (+inr) Sent. tl4 19:06 Inserted saline lock: 22 gauge in left antecubital area, using aseptic technique. Blood tl4 collected. 19:08 Patient has correct armband on for positive identification. Placed in gown. Bed in low tl4 position. Call light in reach. Side rails up X2. Provided Education on: ED process. Client placed on continuous cardiac and pulse oximetry monitoring. NIBP monitoring applied. camera systems engineer on. Door closed. Noise minimized. Lights dimmed. Moved to private room. Warm blanket given. 19:08 No provider procedures requiring assistance completed. tl4 20:38 IV discontinued, intact, bleeding controlled, Pressure dressing applied, IV infiltrated tl4 in CT scan. Swelling decreased with pressure dressing. 20:50 Inserted saline lock: 20 gauge in right antecubital area, using aseptic technique. nj1 ,using aseptic technique. Ultrasound guided. Catheter tip well visualized within vasculature during placement. 21:16 CT Soft Tissue Neck W/contr In Process Unspecified. EDMS 21:16 CT Chest W/ Con In Process Unspecified. EDMS 21:57 Yury Kearney is Hospitalizing Provider. cp Administered Medications: 19:04 Drug: NS 0.9% IV 1000 ml IV at 999 ml/hr Per protocol; 1000 mL bolus Route: IV; Rate: tl4 999 ml/hr; Site: left antecubital; Delivery: Primary tubing; 21:37 Follow up: Response: No adverse reaction; IV Status: Completed infusion; IV Intake: tl4 1000ml 19:05 Drug: morphine IVP or IV 4 mg IVP once over 4 mins Route: IVP; Infused Over: 4 mins; tl4 Site: left antecubital; 21:36 Follow up: Response: No adverse reaction; Pain is decreased tl4 19:05 Drug: Clindamycin IVPB 900 mg IVPB once over 30 mins; (mix in 50 mL) Route: IVPB; tl4 Infused Over: 30 mins; Site: left antecubital; Delivery: Dial-a-flow; 21:37 Follow up: Response: No adverse reaction; IV Status: Completed infusion; IV Intake: tl4 100ml 20:38 Drug: Potassium PO Effervescent Tablet 50 mEq PO once; dissolve in 4 ounces of water or tl4 juice Route: PO; 21:36 Follow up: Response: No adverse reaction tl4 22:26 Not Given (pt can't tolerate itt): potassiumeffervescent tablet 25 meq PO once; tl4 dissolve in 4 ounces of water or juice 22:27 Drug: Ampicillin-Sulbactam Sodium IVPB 3 grams IVPB once over 30 mins; (mix in 100 mL tl4 NS) Route: IVPB; Infused Over: 30 mins; Site: right antecubital; Delivery: Dial-a-flow; 23:45 Follow up: Response: No adverse reaction; IV Status: Completed infusion; IV Intake: tl4 100ml 23:44 Drug: Ondansetron IVP 4 mg IVP once; over 2 minutes Route: IVP; Infused Over: 2 mins; tl4 Site: right antecubital; 23:46 Follow up: Response: No adverse reaction; Nausea is decreased tl4 23:45 Drug: morphine IVP or IV 4 mg IVP once over 4 mins Route: IVP; Infused Over: 4 mins; tl4 Site: right antecubital; 23:46 Follow up: Response: No adverse reaction; Pain is decreased tl4 23:45 Drug: Potassium Chloride IV 20 mEq IV at calculated rate once; administer over 1-2 tl4 hours Route: IV; Rate: calculated rate; Site: right antecubital; 09/30 00:15 Follow up: Response: No adverse reaction; IV Status: Completed infusion; IV Intake: tl4 100ml 09/29 23:53 Drug: Decadron - Dexamethasone IVP 10 mg IVP once Route: IVP; Site: right antecubital; tl4 09/30 00:15 Follow up: Response: No adverse reaction tl4 Medication: 09/29 19:07 VIS not applicable for this client. tl4 Intake: 21:37 IV: 100ml; Total: 100ml. tl4 21:37 IV: 1000ml; Total: 1100ml. tl4 23:45 IV: 100ml; Total: 1200ml. tl4 09/30 00:15 IV: 100ml; Total: 1300ml. tl4 Outcome: 09/29 21:58 Decision to Hospitalize by Provider. cp 09/30 00:14 Admitted to ICU accompanied by nurse, via wheelchair, room 3, with chart, Report called tl4 to ABDIAZIZ Sanderson Condition: stable Instructed on the need for admit, 00:14 Patient left the ED. tl4 Signatures: Dispatcher [employer] EDMS Nikko Leslie MD MD cha Page, Corey, PA Naatsha Marquez cp rg4 Katelin Nation, RN RN ko1 Alina Vázquez, ABDIAZIZ RN nj1 Marcio Serrano RN RN tl4 Corrections: (The following items were deleted from the chart) 09/29 19:06 18:46 Urinalysis+U.LAB.BRZ drawn and sent. tl4 EDMS 22:27 22:27 Ampicillin-Sulbactam Sodium IVPB 3 grams IVPB in right antecubital over 30 mins tl4 tl4 23:44 23:40 BP 121 / 75; Pulse 56bpm; Resp 16bpm; Pulse Ox 100%; Temp 98.1F Oral; Pain 0/10, tl4 Adult; tl4
[2023-09-30] MEDS ORDERED: dexAMETHasone 10 MG/ML VIAL ONE (22:03)
[2023-09-30] MEDS ORDERED: AMPICILLIN/SULBACTAM 3GM/VIAL ONE (22:03)
[2023-09-30] MEDS ORDERED: NA CHLORIDE 0.9% 100 ML ONE (22:04)
[2023-09-30] MEDS ORDERED: ONDANSETRON 4 MG/2 ML VIAL ONE (22:29)
[2023-09-30] MEDS ORDERED: KCL 20 MEQ/100 mL IVPB 100 ML IV ONE (22:30)
--- NOTE | 2023-09-30 23:42 | P.HP ---
Certification for Inpatient Patient admitted to: Inpatient With expected LOS: >2 Midnights Practitioner: I am a practitioner with admitting privileges, knowledge of patient current condition, hospital course, and medical plan of care. Services: Services provided to patient in accordance with Admission requirements found in Title 42 Section 412.3 of the Code of Federal Regulations Patient History Date of Service: 09/30/23 Reason for admission: Neck pain, painful swallowing History of Present Illness: 62-year-old woman with no known past medical history presents to the emergency department with a complaint Of bilateral neck pain, painful swallowing and difficulty swallowing, symptom onset about 3 days ago, associated fever. Patient denies any shortness of breath. Patient reports her daughter was recently diagnosed with dental abscess. CT soft tissue of the neck done in the ED demonstrated severe cellulitis involving the neck region, submandibular area sternocleidomastoid muscle, around the carotids, the deep neck structures demonstrating edema. ENT Dr. Gao evaluated patient in the ED, source of infection likely related to dental infection and recommended antibiotics-Unasyn, clindamycin, steroid and close monitoring. Patient is admitted to the ICU for close monitoring. Home medications list reviewed: Yes (None) - Past Medical/Surgical History Diabetic: No -: None - Family History Mother -: Hypertension - Social History Smoking Status: Current every day smoker Alcohol use: Yes CD- Drugs: No Place of Residence: Home Review of Systems Other: Except as documented, all other systems reviewed and negative. Physical Examination - Physical Exam General: Alert, In no apparent distress, Oriented x3 HEENT: Other (Submandibular area swollen) Neck: Supple, Other (Entire neck is swollen) Respiratory: Clear to auscultation bilaterally, Normal air movement Cardiovascular: No edema, Regular rate/rhythm, Normal S1 S2 Capillary refill: <2 Seconds Gastrointestinal: Normal bowel sounds, Soft and benign, Non-distended, No tenderness Musculoskeletal: No swelling, No tenderness Integumentary: No cyanosis, Other (Erythema noted in the neck and sternal area) Neurological: Normal speech, Normal strength at 5/5 x4 extr, Cranial nerves 3-12 intact Lymphatics: No axilla or inguinal lymphadenopathy - Studies Laboratory Data (last 24 hrs) 09/30/23 09/30/23 09/30/23 18:30 18:30 18:30 WBC 28.00 H Hgb 13.2 Hct 39.9 Plt Count 502 H PT 14.1 H INR 1.29 APTT 31.4 Sodium 136 Potassium 2.8 L BUN 13 Creatinine 1.07 H Glucose 106 Total Bilirubin 1.6 H AST 14 L ALT < 10 L Alkaline Phosphatase 125 H Microbiology Data (last 24 hrs): 09/30/23 18:14 Throat Group A Streptococcus Rapid Screen - Final Assessment and Plan - Problems (Diagnosis) (1) Acute epiglottitis Current Visit: Yes Status: Acute (2) Cellulitis, neck Current Visit: Yes Status: Acute (3) Dental infection Current Visit: Yes Status: Acute (4) Elevated blood pressure reading Current Visit: Yes Status: Acute - Plan Admit to the ICU ENT input appreciated Start IV Unasyn and clindamycin Analgesics-IV morphine IV dexamethasone Monitor closely for airway compromise Hydrate with IV fluid. Monitor CBC to follow leukocytosis Follow blood cultures. Hydralazine as needed for BP spikes. - Advance Directives Does patient have a Living Will: No Does patient have a Durable POA for Healthcare: No
[2023-10-01] MEDS: D5 0.9 NS 1,000 ML IV SCH (00:25)
[2023-10-01] MEDS ORDERED: CLINDAMYCIN 600MG/D5W 50 ML IV ONE ×4 (00:32→15:26)
[2023-10-01] MEDS: HEPARIN 5000 UNIT/ML 1 ML VIAL SQ SCH (00:56)
[2023-10-01] MEDS: CLINDAMYCIN INJ 600 MG in NA CHLORIDE 0.9% 50 ML IV SCH ×2 (00:57)
--- NOTE | 2023-10-01 01:04 | CON ---
Date of Consultation: 09/30/2023 Reason For Consultation: Epiglottitis. History Of Present Illness: Ms. Chávez is a 62-year-old female, who came in today c omplaining of a 3-day history of progressive and worsening sore throat and neck swelling. She denies any significant past medical history in regard to diabetes, heart problems, lung problems. She was not having any significant fevers, but due to the difficulty swallowing and progression of her sympto ms, she came to the emergency room for further evaluation. At that time, she was evaluated including a CT of the neck with contrast and laboratory studies, which will be further discussed below. Past Medical History: None. Past Surgical History: section and exploratory laparotomy with possible partial bowel resec tion for obstruction. Details are uncertain, but I would suspect abdominal adhesions may have caused some issues. Allergies: NONE. Home Medications: None. Physical Examination: The patient is in no acute distress. Her face is normocephalic and symmetric in regard to strength. Her pupils are equal, round, and reactive. Her external nose and external ears are unremarkable. H er mouth demonstrates trismus of about 2 to 2.5 cm with fetid breath. Her teeth show multiple caviti es and fillings. Her oropharynx appears swollen, which is worse on the left side. Her floor of mout h is mildly elevated, but not discretely tender nor indurated. She has very prominent submandibular swelling, which is slightly worse on the left side. She has cellulitis and soft tissue edema extendi ng to the left neck and the upper chest with mild to moderate erythema of the upper chest. Imaging And Laboratory Studies: The patient's glucose is 106. Her BUN and creatinine are normal. H er WBC is elevated at 28K. Her potassium was mildly decreased. CT images are personally reviewed an d show significant soft tissue edema including fat stranding of the neck, which is worse on the left side and extending down into the mediastinum. There is no discrete fluid collection noted. There is edema of the left oropharynx and mild edema of the epiglottis. On additional personal review of josé antonio ges, there are periapical lucencies around the left posterior mandibular teeth, which I suspect is th e nidus for this infection. Assessment: Odontogenic infection, dental abscess, cellulitis of the deep neck space and upper chest . Plan: As there is no discernible drainable abscess at this time, the patient can continue a clear li quid diet. I recommend continuing the IV Unasyn and IV clindamycin and admitting the patient for at least observation to ensure improvement with medical therapy. If the patient is significantly improv ing, we can transition to oral outpatient antibiotics and encourage the patient for urgent evaluation and dental treatment to control the source of her infection. If she is not improving on medical the rapy, she may require transfer to a facility with an oral surgeon to provide urgent extractions to co ntrol the source of this infection. During my in-person evaluation, the patient does not appear to h ave any acute need for airway intervention as she is controlling her secretions, unable to speak with out significant difficulty. I will continue to follow the patient during her hospital stay. PRADIP Voice ID: [id number] Report ID: [id number]
[2023-10-01] MEDS ORDERED: AMPICILLIN/SULBACTAM 3GM/VIAL ONE ×4 (04:01→22:23)
[2023-10-01] MEDS ORDERED: NA CHLORIDE 0.9% 100 ML ONE ×4 (04:03→22:23)
[2023-10-01] MEDS: AMPICILLIN/SULBACT 3 GM in NA CHLORIDE 0.9% 100 ML IVPB SCH ×2 (04:06)
[2023-10-01 05:02] LABS: Sqamous Epithelial <5 /HPF (None Seen); Urine Bacteria 20-50 /HPF (<20); Urine Bilirubin NEGATIVE (Negative); Urine Blood 3+ (Negative); Urine Clarity Clear (Clear); Urine Color Light-Yellow (Yellow); Urine Culture Reflex Order NOT NEEDED; Urine Glucose NEGATIVE (Negative); Urine Ketones NEGATIVE (Negative); Urine Microscopic Reflex YN ORDER UMIC; Urine Mucus 3+ /HPF (None Seen); Urine Nitrite NEGATIVE (Negative); Urine Protein TRACE (Negative); Urine Urobilinogen Normal (Normal); Urine WBC <5 /HPF (<5); Urine pH 5.5 (5.0-7.0)
[2023-10-01 05:15] LABS: Specific Gravity > 1.030 (1.005-1.030)
[2023-10-01] MEDS ORDERED: dexAMETHasone 4 MG/ML VIAL ONE ×3 (05:16→20:43)
[2023-10-01 05:29] LABS: Absolute Eosinophils 0.1 K/uL (0-0.5); Absolute Lymphocytes (CBC) 0.8 K/uL (0.7-4.9); Absolute Monocytes 0.7 K/uL (0.1-1.3); Absolute Neutrophil 29.7 K/uL (1.8-8.0); Basophils % 0.2 % (0-1.3); Eosinophils % 0.4 % (0-4.4); Hematocrit 37.3 % (36.0-45.0); Hemoglobin 12.6 g/dL (12.0-15.0); Lymphocytes % 2.6 % (15.3-44.8); MCH 30.4 pg (27.0-35.0); MCHC 33.8 g/dL (32.0-36.0); MCV 90.1 fL (80-100); MPV 7.8 fL (7.6-11.3); Monocytes % 2.2 % (3.3-12.3); Neutrophils % 94.6 % (41.7-73.7); Platelets 433 thou/uL (152-406); RBC Red Blood Cell Count 4.15 M/uL (3.86-4.86); Red Cell Distribution Width 15.8 % (12.1-15.2)
[2023-10-01 05:48] LABS: Anion Gap 10.2 mEq/L (5.0-15.0); Phosphorus 2.4 mg/dL (2.5-4.9)
[2023-10-01 05:50] LABS: Magnesium 1.9 mg/dL (1.6-2.4); Potassium 3.2 mEq/L (3.5-5.1)
[2023-10-01] MEDS: POTASSIUM PHOS IN 0.9 % NACL 15 MMOL/250 ML BAG IV ONE (07:51)
[2023-10-01] MEDS ORDERED: MORPHINE 2 MG/ML SYR ONE ×2 (08:32→14:06)
[2023-10-01] MEDS: MORPHINE 2 MG/ML SYR IV PRN (09:44)
[2023-10-01 10:43] LABS: Band Neutrophils 17 % (0-1); Blood Morphology Comment NOT SEEN (NOT SEEN); Differential Total Cells Count 100; Dohle Bodies PRESENT; Lymphocytes 5 % (15-42); Monocytes 5 % (0-10); Myelocytes 1 % (0-0); Platelet Estimate INCR; Segmented Neutrophils 72 % (40-80); Toxic Granulation 1+
[2023-10-01] MEDS: CLINDAMYCIN 600MG/D5W 50 ML IV SCH (13:00)
--- NOTE | 2023-10-01 13:49 | P.PN ---
Subjective Date of Service: 10/01/23 Patient states she is feeling much better. Patient with significant dental caries and was secondary infection of the soft tissue of the neck. At this time, will continue with IV steroids and IV antibiotics. Review of Systems 10-point ROS is otherwise unremarkable Physical Examination - Vital Signs Temperature: 97.6 F Blood Pressure: 163/79 Pulse: 105 Respirations: 24 Pulse Ox (%): 95 - Physical Exam General: Alert, In no apparent distress, Oriented x3 HEENT: Other (Generalized dental caries diffusely) Neck: Other (Erythema and edema) Respiratory: Clear to auscultation bilaterally, Normal air movement Cardiovascular: Regular rate/rhythm, Normal S1 S2, No murmurs Gastrointestinal: Normal bowel sounds, Soft and benign, Non-distended, No tender ness Musculoskeletal: No clubbing, No swelling, No tenderness Neurological: Sensation intact, Cranial nerves 3-12 intact - Studies Laboratory Data (last 24 hrs) 09/30/23 09/30/23 09/30/23 18:30 18:30 18:30 WBC 28.00 H Hgb 13.2 Hct 39.9 Plt Count 502 H PT 14.1 H INR 1.29 APTT 31.4 Sodium 136 Potassium 2.8 L BUN 13 Creatinine 1.07 H Glucose 106 Total Bilirubin 1.6 H AST 14 L ALT < 10 L Alkaline Phosphatase 125 H Microbiology Data (last 24 hrs): 09/30/23 18:14 Throat Group A Streptococcus Rapid Screen - Final Medications List Reviewed: Yes Assessment & Plan - Problems (Diagnosis) (1) Acute epiglottitis Current Visit: Yes Status: Acute (2) Cellulitis, neck Current Visit: Yes Status: Acute (3) Dental infection Current Visit: Yes Status: Acute (4) Uncontrolled hypertension Current Visit: Yes Status: Acute - Plan Plan: 1. Patient with dental caries and secondary cellulitis of the neck with questionable epiglottitis. Appreciate ENT assistance in patient's care. Continue with IV antibiotics and pain control. Patient will need referral to follow-up with oral maxillofacial surgery for tooth extraction. At this time, patient clinically doing well and patient should be stable for discharge over the next 48 to 72 hours. 2. Hypertension; continue with strict blood pressure control. Patient's hemodynamically stable. Will monitor in ICU and then will downgrade in the morning. Possible discharge over the next 48 hours. Discharge Plan: Home Plan to discharge in: Greater than 2 days - Advance Directives Does patient have a Living Will: No Does patient have a Durable POA for Healthcare: No - Code Status/Comfort Care Code Status Assessed: Yes Code Status: Full Code Critical Care: No Time Spent Managing PTS Care (In Minutes): 35
[2023-10-01] MEDS ORDERED: HYDROCODONE/APAP 10/325 TAB PO PRN (15:13)
[2023-10-01] MEDS ORDERED: NA CHLORIDE 0.9% 1,000 ML ONE (15:25)
[2023-10-01] MEDS ORDERED: HEPARIN 5000 UNIT/ML 1 ML VIAL ONE (15:26)
[2023-10-01] MEDS: NA CHLORIDE 0.9% 1,000 ML IV SCH (15:37)
[2023-10-01] MEDS: VANCOMYCIN 1.25 GM in NA CHLORIDE 0.9% 250 ML IVPB SCH (15:38)
[2023-10-01] MEDS ORDERED: KETOROLAC 30 MG/ML INJ ONE (16:19)
[2023-10-01] MEDS: KETOROLAC 30 MG/ML INJ IV PRN (16:20)
[2023-10-01] MEDS: dexAMETHasone 4 MG/ML VIAL IV SCH ×2 (20:44)
[2023-10-02] MEDS ORDERED: KETOROLAC 30 MG/ML INJ ONE (00:33)
[2023-10-02] MEDS ORDERED: CLINDAMYCIN 600MG/D5W 50 ML IV ONE ×4 (00:45→19:19)
[2023-10-02] MEDS ORDERED: ONDANSETRON 4 MG/2 ML VIAL ONE ×3 (02:04→22:49)
[2023-10-02] MEDS: ONDANSETRON 4 MG/2 ML VIAL IV PRN (02:07)
[2023-10-02] MEDS ORDERED: AMPICILLIN/SULBACTAM 3GM/VIAL ONE ×4 (04:04→21:23)
[2023-10-02] MEDS ORDERED: NA CHLORIDE 0.9% 100 ML ONE ×4 (04:04→21:23)
[2023-10-02 05:23] LABS: Absolute Lymphocytes (CBC) 1.1 K/uL (0.7-4.9); Absolute Monocytes 0.6 K/uL (0.1-1.3); Absolute Neutrophil 39.7 K/uL (1.8-8.0); Basophils % 0.1 % (0-1.3); Hematocrit 35.6 % (36.0-45.0); Hemoglobin 11.8 g/dL (12.0-15.0); Lymphocytes % 2.6 % (15.3-44.8); MCH 29.8 pg (27.0-35.0); MCHC 33.1 g/dL (32.0-36.0); MCV 90.2 fL (80-100); MPV 8.7 fL (7.6-11.3); Monocytes % 1.4 % (3.3-12.3); Neutrophils % 95.9 % (41.7-73.7); Platelets 478 thou/uL (152-406); RBC Red Blood Cell Count 3.94 M/uL (3.86-4.86); Red Cell Distribution Width 15.8 % (12.1-15.2)
[2023-10-02 05:58] LABS: AST/SGOT 17 U/L (15-37); Albumin/Globulin Ratio 0.4 (1.1-1.8); Alkaline Phosphatase 115 U/L (45-117); Anion Gap 11.8 mEq/L (5.0-15.0); BUN Blood Urea Nitrogen 33 mg/dL (7-18); Bicarbonate 23 mEq/L (21-32); Bilirubin Total 0.9 mg/dL (0.2-1.0); Globulin 4.6 g/dL (2.3-3.5); Glomerular Filtration Rate 38 ml/min (=/>90); Glucose Level 124 mg/dL (74-106); Magnesium 1.7 mg/dL (1.6-2.4); Phosphorus 4.1 mg/dL (2.5-4.9); Potassium 2.8 mEq/L (3.5-5.1); Protein, Total 6.6 g/dL (6.4-8.2); Sodium Level 139 mEq/L (136-145)
[2023-10-02 06:03] LABS: ALT/SGPT < 10 U/L (13-56)
[2023-10-02 06:20] VITALS: BMI 25.6
[2023-10-02] MEDS ORDERED: KCL 20 MEQ/100 mL IVPB 100 ML IV ONE ×3 (06:29→16:16)
[2023-10-02] MEDS: KCL 20 MEQ/100 mL IVPB 20 MEQ/100 ML BAG IV SCH ×2 (06:30→16:20)
--- NOTE | 2023-10-02 07:05 | P.PN ---
Date of Service: 10/01/23 HD 1 Patient see around 10AM. Tolerating secretions and ice chips. Subjectively mildly improved. Exam with persistent mild tachycardia (100-105), RR 35. Stable but persistent significant submandibular and left neck edema and induration. FOM flat, stable. Trismus of about 2 -2.5cm. Patient with about 12 h of IV Abx and steroids with neck cellulitis including deep neck space, likely odotogenic source. No acute surgical intervention indicated. Ok to advance to [facility] as tolerated. Continue Clinda and Unasyn and steroids and reassess on Monday - if not improved with 36h of IV Abx, consider transfer for OMFS access for source control.
[2023-10-02] MEDS: MAGNESIUM SULFATE 1 gm IVPB 1 GM/100 ML BAG IV ONE (07:48)
--- NOTE | 2023-10-02 07:51 | P.PN ---
Date of Service: 10/02/23 HD 2 Patient seen around 7AM. Tolerating secretions and ice chips, tolerating clear liquids better compared to yesterday. Subjectively improving with improved ease and pain of swallowing. Requesting to advance diet, complaining of hunger. PE: Stable but persistent significant submandibular and left neck edema and slightly improvement of degree of induration. FOM flat, stable. Mild erythema of upper chest with excoriations and palpable calor. Improvment in Trismus with mouth opening now +3cm and improved/spontaneous tongue extrusion. HR 96. RR 21. Sats 97. WBC leukocytotis with bands continues to increase (28 to 31 to 41) but unclear what degree is demarginalization from IV steroids. Additionally, her pro- calcitonin is significantly elevated raising concern for sepsis but none was ordered at admission. Patient with about 36 h of IV Abx and steroids with neck cellulitis including deep neck space, likely odotogenic source. No acute surgical intervention indicated as not definitive soft tissue abscess is noted at this time. I am concerned about the degree of persistent swelling and spoke with hospitalist team regarding possible need for source control. They will plan to consult OMFS to see if consultation is feasible locally. Continue Clinda and Unasyn for now. D/C steroids in case this is contributing to progressive leukocytosis. In regards to concern for sepsis, the patient's BP remains normal and her tachycardia is mild to slightly improved compared to yesterday. In total, I spent 30 minutes in review of chart, communication with nursing and hospitalist staff and documentation
[2023-10-02 08:07] LABS: Differential Total Cells Count 100; Hypersegmented Neutrophils PRESENT; Lymphocytes 3 % (15-42); Monocytes 1 % (0-10); Platelet Estimate ADEQ; Segmented Neutrophils 96 % (40-80); Toxic Granulation PRESENT
[2023-10-02 08:08] LABS: Blood Morphology Comment NOT SEEN (NOT SEEN)
[2023-10-02 08:09] LABS: Dohle Bodies PRESENT
[2023-10-02] MEDS ORDERED: VANCOMYCIN 1 GM/VIAL ONE (14:05)
[2023-10-02] MEDS ORDERED: METOCLOPRAMIDE 10 MG/2mL INJ ONE (14:05)
[2023-10-02] MEDS ORDERED: NA CHLORIDE 0.9% 250 ML ONE (14:05)
[2023-10-02] MEDS: VANCOMYCIN 1 GM in NA CHLORIDE 0.9% 250 ML IVPB SCH (14:07)
[2023-10-02] MEDS: METOCLOPRAMIDE 10 MG/2mL INJ IV SCH (14:07)
--- NOTE | 2023-10-02 14:19 | EKG ---
Test Date: 2023-09-30 Test Time: 17:57:56 Sourcing Consultant: TL MEASUREMENT RESULTS: Intervals: Rate: 102 NH: 150 QRSD: 82 QT: 372 QTc: 484 [place]: P: 72 NH: 150 QRS: 14 T: 65 INTERPRETIVE STATEMENTS: Sinus tachycardia with fusion complexes Otherwise normal ECG Compared to ECG 04/17/2002 12:04:00 Fusion complex(es) now present Sinus rhythm no longer present Myocardial infarct finding no longer present Electronically Signed On 10-02-23 14:14:42 CDT by Kory Luna
[2023-10-02] MEDS ORDERED: HEPARIN 5000 UNIT/ML 1 ML VIAL ONE (16:15)
--- NOTE | 2023-10-02 18:44 | P.PN ---
Subjective Date of Service: 10/02/23 Patient is doing much better today. She states she is able to eat and talk much better. Spoke with ENT regarding patient's clinical status, and we discussed getting oral maxillofacial surgery on board. I spoke with Dr. Alberto, and he states he is available if patient's condition worsens he can do a tooth extraction while she is here. Otherwise, if she continues to improve he would prefer to do this outpatient. I will keep him updated on patient's clinical status. Patient has been afebrile. She tells me she feels much better and she clinically looks better. However, patient does have a leukocytosis. Will continue to monitor closely. Review of Systems 10-point ROS is otherwise unremarkable Physical Examination - Vital Signs Temperature: 97.4 F Blood Pressure: 146/68 Pulse: 100 Respirations: 18 Pulse Ox (%): 99 - Physical Exam General: Alert, In no apparent distress, Oriented x3 HEENT: Atraumatic, PERRLA, Other (Dental caries extensively through the mandibular teeth), EOMI Neck: Other (Erythema which extends to the chest wall with minimal tenderness) Respiratory: Clear to auscultation bilaterally, Normal air movement Cardiovascular: Regular rate/rhythm, Normal S1 S2, Systolic murmur Gastrointestinal: Normal bowel sounds, Soft and benign, Non-distended, No tenderness Musculoskeletal: No clubbing, No swelling, No tenderness Integumentary: No rashes Neurological: Sensation intact, Cranial nerves 3-12 intact - Studies Medications List Reviewed: Yes Assessment & Plan - Problems (Diagnosis) (1) Acute epiglottitis Current Visit: Yes Status: Acute (2) Cellulitis, neck Current Visit: Yes Status: Acute (3) Dental infection Current Visit: Yes Status: Acute (4) Uncontrolled hypertension Current Visit: Yes Status: Acute - Plan Plan: 1. Patient with dental caries extensively involving the mandibular teeth and with secondary cellulitis of the neck with questionable epiglottitis. Patient's clinical symptoms have improved significantly. Patient is able to talk much better and she is eating today. She has been afebrile. She has developed a leukocytosis. Appreciate ENT assistance in patient's care. At this time, we will continue with IV antibiotics and pain control. Also spoke with oral maxillofacial surgery, Dr. Alberto, who states that he would be available for tooth extraction if necessary. However, it is difficult to do at the hospital because of the equipment that he has to work with-preference would be to treat the infection in the hospital and get it under control and then follow-up in his office for tooth extraction. 2. Hypertension; continue with strict blood pressure control. Patient's hemodynamically stable. Will monitor in ICU and then will downgrade in the morning. 3. Acute renal insufficiency; will back off on using Toradol and steroids. Will continue acetaminophen for pain control. Possibly increase tubular secretions. 4. Leukocytosis; most likely related to his steroids along with neck cellulitis. Continue with antibiotic therapy. Repeat labs in the morning 5. GI/DVT prophylaxis Discharge Plan: Home Plan to discharge in: Greater than 2 days - Advance Directives Does patient have a Living Will: No Does patient have a Durable POA for Healthcare: No - Code Status/Comfort Care Code Status: Full Code Critical Care: No Time Spent Managing PTS Care (In Minutes): 35
[2023-10-02] MEDS ORDERED: NA CHLORIDE 0.9% 1,000 ML ONE (21:23)
[2023-10-02] MEDS ORDERED: HYDROCODONE/APAP 10/325 TAB ONE (23:04)
[2023-10-02] MEDS: HYDROCODONE/APAP 10/325 TAB PO PRN (23:05)
[2023-10-03] MEDS ORDERED: CLINDAMYCIN 600MG/D5W 50 ML IV ONE (00:47)
[2023-10-03] MEDS ORDERED: HEPARIN 5000 UNIT/ML 1 ML VIAL ONE ×2 (00:47→16:03)
[2023-10-03] MEDS ORDERED: NA CHLORIDE 0.9% 100 ML ONE ×3 (04:32→16:04)
[2023-10-03] MEDS ORDERED: AMPICILLIN/SULBACTAM 3GM/VIAL ONE ×3 (04:32→16:03)
[2023-10-03 04:46] LABS: Absolute Basophils 0.1 K/uL (0-0.5); Absolute Eosinophils 0.2 K/uL (0-0.5); Absolute Lymphocytes (CBC) 2.2 K/uL (0.7-4.9); Absolute Monocytes 0.8 K/uL (0.1-1.3); Absolute Neutrophil 40.8 K/uL (1.8-8.0); Basophils % 0.3 % (0-1.3); Eosinophils % 0.3 % (0-4.4); Hematocrit 32.9 % (36.0-45.0); Hemoglobin 10.9 g/dL (12.0-15.0); Lymphocytes % 5.1 % (15.3-44.8); MCH 29.7 pg (27.0-35.0); MCHC 33.2 g/dL (32.0-36.0); MCV 89.5 fL (80-100); Monocytes % 1.8 % (3.3-12.3); Neutrophils % 92.5 % (41.7-73.7); Nucleated Red Blood Cells % 0.1 % (0-0); Platelets 454 thou/uL (152-406); RBC Red Blood Cell Count 3.68 M/uL (3.86-4.86); Red Cell Distribution Width 15.9 % (12.1-15.2)
[2023-10-03 05:20] LABS: Anion Gap 9.5 mEq/L (5.0-15.0); Potassium 3.5 mEq/L (3.5-5.1)
[2023-10-03 05:21] LABS: Albumin 1.9 g/dL (3.4-5.0); Albumin/Globulin Ratio 0.4 (1.1-1.8); Bilirubin Total 0.7 mg/dL (0.2-1.0); Globulin 4.7 g/dL (2.3-3.5); Magnesium 2.3 mg/dL (1.6-2.4); Protein, Total 6.6 g/dL (6.4-8.2)
--- NOTE | 2023-10-03 07:01 | P.PN ---
Date of Service: 10/03/23 Subjective: Feeling better today Neck erythema/swelling improving; able to open mouth more each day nausea/vomiting reported overnight - 2=3 episodes afebrile ROS: 10 point ROS as noted above, otherwise negative Physical Exam: GEN: Alert, oriented, NAD HEENT: Dental caries extensively through the mandibular teeth CV: Regular rate and rhythm, no edema, +2/6systolic murmur Pulm: Non-labored respirations on room air, clear bilaterally ABD: Soft, nontender, nondistended Integumentary: erythema around the neck which extends to the chest wall with minimal tenderness; dry/peeling skin superficially Neuro: normal affect, moves all extremities equally vitals reviewed Problem List: Dental infection / Mandibular teeth with diffuse caries / Neck cellulitis MITA Hypertension Dental infection / Mandibular teeth with diffuse caries / Neck cellulitis CT chest (09/29): inflammation in the neck extends into the superior mediastinum, midline anterior chest wall, and left supraclavicular region. No gas / abscess seen. CT neck (09/29): Prevertebral edema and epiglottis thickening. Diffuse cutaneous and subcutaneous thickening. Edema extends into the deep tissues of the neck and surrounds the left submandibular gland and sternocleidomastoid muscle Blood cx (09/30): NGTD ENT is following no acute surgical intervention indicated at this time / no discernible abscess Continue empiric unasyn (09/30-) and Vancomycin (10/01-) clindamycin dc'd (09/30-10/02) afebrile, +leukocytosis 41 -> 44 (10/02) consider transition to PO abx in next 24 hours / on discharge if improvement continues and WBC decreases per ENT advance diet as tolerated procal improving IV steroids dc'd 09/30 PRN analgesics / antiemetics Discussed with Dr. Alberto, [facility] [place] [place], who is available for tooth extraction if milka valadez's condition worsens / is needed. Would prefer outpatient procedure once more clinically stable. Close follow up within 1 week if no inpatient intervention MITA Creatinine 1.53 -> 1.32 (10/02) Continue IV fluids, decrease to 75ml/hr 10/01, from 125 Continue to monitor renal function improving Hypertension IV hydralazine PRN VTE: heparin sq Code: Full Dispo: Home
[2023-10-03] MEDS ORDERED: POTASSIUM 25 MEQ EFFERV TAB PO ONE (08:00)
--- NOTE | 2023-10-03 08:03 | P.PN ---
Date of Service: 10/03/23 HD 3 Patient seen around 7:30AM. Had some N/V yesterday but resolved. No pain currently. Subjectively improved compared to yesterday. PE: HR mid 85. Appears more relaxed, reclined. Voice clear. Submandibular swelling is significantly decreased and softer/less indurated. Mouth opening is normal. SP and OP better visualized without swelling, mass or ulcer. Mild peeling of skin on upper chest and upper neck but less calor. No crepitus. Erythema improved. WBC leukocytotis with bands continues to increase (28 to 31 to 41 to 44) but procalcitonin is trending down from 14 to 5. Patient with about 60 h of IV Abx, now on Vanco with neck cellulitis including deep neck space, likely odotogenic source. No acute surgical intervention indicated as no definitive soft tissue abscess is noted at this time. I am encouraged by her clinically appearent improvement in regards to subjective symptoms and objective exam findings. Agreed to PO diet as tolerated. Floor status. If continues with clinical improvement and has decreased WBC tomorrow, consider D/C with PO Abx and urgent OMFS evaluation/extractions.
[2023-10-03] MEDS ORDERED: HYDRALAZINE HCL 20 MG/ML VIAL ONE ×2 (08:24→16:50)
[2023-10-03] MEDS: HYDRALAZINE HCL 20 MG/ML VIAL IV PRN (08:27)
[2023-10-03] MEDS: POTASSIUM CL SA 10 MEQ TAB PO ONE (08:27)
[2023-10-03] MEDS ORDERED: HYDROCODONE/APAP 10/325 TAB ONE (09:48)
[2023-10-03] MEDS ORDERED: VANCOMYCIN 1 GM/VIAL ONE (16:03)
[2023-10-03] MEDS ORDERED: NA CHLORIDE 0.9% 250 ML ONE (16:04)
[2023-10-03] MEDS ORDERED: NA CHLORIDE 0.9% 1,000 ML ONE (18:38)
[2023-10-03] MEDS: NA CHLORIDE 0.9% 1,000 ML IV SCH (20:45)
[2023-10-03] MEDS: METOPROLOL TAR 50 MG TAB PO SCH (21:00)
[2023-10-03] MEDS: LOSARTAN POTASSIUM 50 MG TABLET PO SCH (21:19)
[2023-10-04 03:34] LABS: Absolute Basophils 0.1 K/uL (0-0.5); Absolute Eosinophils 0.1 K/uL (0-0.5); Absolute Lymphocytes (CBC) 3.6 K/uL (0.7-4.9); Absolute Monocytes 1.1 K/uL (0.1-1.3); Absolute Neutrophil 24.6 K/uL (1.8-8.0); Basophils % 0.3 % (0-1.3); Eosinophils % 0.2 % (0-4.4); Hematocrit 33.4 % (36.0-45.0); Hemoglobin 11.4 g/dL (12.0-15.0); Lymphocytes % 12.3 % (15.3-44.8); MCH 30.2 pg (27.0-35.0); MCV 88.8 fL (80-100); MPV 7.6 fL (7.6-11.3); Monocytes % 3.6 % (3.3-12.3); Neutrophils % 83.6 % (41.7-73.7); Nucleated RBC Absolute Count 0.1 (0-0); Nucleated Red Blood Cells % 0.3 % (0-0); Platelets 406 thou/uL (152-406); RBC Red Blood Cell Count 3.76 M/uL (3.86-4.86); Red Cell Distribution Width 16.1 % (12.1-15.2)
[2023-10-04 03:58] LABS: Anion Gap 10.3 mEq/L (5.0-15.0); Potassium 3.3 mEq/L (3.5-5.1)
[2023-10-04] MEDS: POTASSIUM CL SA 10 MEQ TAB PO ONE (05:26)
[2023-10-04] MEDS ORDERED: HYDROCODONE/APAP 5/325 MG TAB PO PRN (06:55)
[2023-10-04 09:11] VITALS: BP 182/85
[2023-10-04 10:10] VITALS: O2SAT 98
[2023-10-04 10:11] VITALS: TEMP 98.2
--- NOTE | 2023-10-04 11:44 | P.DS ---
Admission Date: 09/30/23 Discharge Date: 10/04/23 Disposition: ROUTINE DISCHARGE Discharge Condition: FAIR Reason for Admission: Neck pain, painful swallowing Consultations: ENT - Dr. Gao Brief History of Present Illness: 62yo F, PMH: hypertension Patient presents to the emergency department with a complaint Of bilateral neck pain, painful swallowing and difficulty swallowing, symptom onset about 3 days ago, associated fever. Patient denies any shortness of breath. Patient reports her daughter was recently diagnosed with dental abscess. CT soft tissue of the neck done in the ED demonstrated severe cellulitis involving the neck region, submandibular area sternocleidomastoid muscle, around the carotids, the deep neck structures demonstrating edema. ENT Dr. Gao evaluated patient in the ED, source of infection likely related to dental infection and recommended antibiotics-Unasyn, clindamycin, steroid and close monitoring. Patient is admitted to the ICU for close monitoring. Hospital Course: Problem List: Dental infection / Mandibular teeth with diffuse caries / Neck cellulitis MITA, resolved Hypertension Patient presented with bilateral neck pain, swelling, difficulty swallowing and was found to have a dental infection complicated by neck cellulitis seen on CT. Suspect odotogenic etiology as patient has extensive dental caries throughout the mandibular teeth. Dr. Stovall, ENT, evaluated patient and recommended medical management with IV steroids, empiric antibiotics. No findings to warrant surgical intervention / no discernible abscess visualized. Patient was given empiric IV clindamycin, unasyn, and vancomycin while hospitalized and had improvement of her symptoms. Blood cultures have been without growth since 09/29. Patient is to complete x more days of x on discharge. Strep screen was positive for group A strep. Briefly spoke with Dr. Alberto over the phone, oral maxillofacial surgery, who stated he was available for tooth extraction if necessary however preferred to have the procedure as outpatient once patient was more clinically stable. Recommend to schedule appointment as soon as possible for sugical evaluation / tooth extraction with Dr. Alberto. [phone] Advised to repeat blood work in ~1 week to monitor white blood cell count and renal function. WBC on discharge: 29.5, peaked: 44 Patient was feeling better, neck pain/erythma/swelling improved, afebrile > 48 hours, leukocytosis improving, and was deemed stable for discharge with close follow up with ENT / OMFS. Patient's blood pressure was also noted to be elevated and was started on losartan with some improvement. Suspect a degree of her hypertension while hospitalized is due to discomfort/infection and IV fluids she received. She did have a mild MITA on admission which improved with IV hydration. (Creatinine peaked at 1.5 and was 0.89 on day of discharge). Medications: Augmentin and Clindamycin for 10 more days, to complete ~2 week course Tylenol #3 as needed for pain Losartan 50mg daily Follow up: PCP 3-5 days ENT ~[address] Alebrto, [facility] [place], call to make appointment as soon as possible for surgical evaluation Physical Exam: GEN: Alert, oriented, NAD HEENT: Dental caries extensively through the mandibular teeth CV: Regular rate and rhythm, no edema, +2/6systolic murmur Pulm: Non-labored respirations on room air, clear bilaterally ABD: Soft, nontender, nondistended Integumentary: minimal neck erythema/swelling; dry/peeling skin superficially Neuro: normal affect, moves all extremities equally Vital Signs/Physical Exam: Temp Pulse Resp BP Pulse Ox 98.2 F 90 22 H 182/85 H 99 10/04/23 08:00 10/04/23 08:54 10/04/23 08:00 10/04/23 08:54 10/04/23 08:00 Laboratory Data at Discharge: WBC 29.50 thou/uL (4.3-10.9) H 10/04/23 03:19 Hgb 11.4 g/dL (12.0-15.0) L 10/04/23 03:19 Hct 33.4 % (36.0-45.0) L 10/04/23 03:19 Plt Count 406 thou/uL (152-406) 10/04/23 03:19 PT 14.1 SECONDS (9.5-12.5) H 09/30/23 18:30 INR 1.29 09/30/23 18:30 APTT 31.4 SECONDS (24.3-36.9) 09/30/23 18:30 Sodium 139 mEq/L (136-145) 10/04/23 03:19 Potassium 3.3 mEq/L (3.5-5.1) L 10/04/23 03:19 BUN 26 mg/dL (7-18) H 10/04/23 03:19 Creatinine 0.89 mg/dL (0.55-1.02) 10/04/23 03:19 Glucose 96 mg/dL (74-106) 10/04/23 03:19 Phosphorus 3.7 mg/dL (2.5-4.9) 10/03/23 05:16 Magnesium 2.0 mg/dL (1.6-2.4) 10/04/23 03:19 Total Bilirubin 0.7 mg/dL (0.2-1.0) 10/03/23 04:30 AST 24 U/L (15-37) 10/03/23 04:30 ALT 12 U/L (13-56) L 10/03/23 04:30 Alkaline Phosphatase 120 U/L (45-117) H 10/03/23 04:30 Home Medications: Amox/Clavulanate [Augmentin 875-125 Tab] 1 tab PO BID 10 Days #20 tab 10/04/23 Codeine/APAP [Tylenol W/Codeine #3 tab] 1 tab PO Q8HP PRN #10 tab 10/04/23 Losartan Potassium [Cozaar*] 50 mg PO DAILY 30 Days #30 tablet 10/04/23 clindamycin HCL [Clindamycin HCl] 300 mg PO Q6H 10 Days #40 cap 10/04/23 New Medications: Codeine/APAP [Tylenol W/Codeine #3 tab] 1 tab PO Q8HP PRN #10 tab PRN Reason: Pain Amox/Clavulanate [Augmentin 875-125 Tab] 1 tab PO BID 10 Days #20 tab clindamycin HCL [Clindamycin HCl] 300 mg PO Q6H 10 Days #40 cap Losartan Potassium [Cozaar*] 50 mg PO DAILY 30 Days #30 tablet Physician Discharge Instructions: Physician Discharge Instructions: Patient presented with bilateral neck pain, swelling, difficulty swallowing and was found to have a dental infection complicated by neck cellulitis seen on CT. Suspect odotogenic etiology as patient has extensive dental caries throughout the mandibular teeth. Dr. Stovall, ENT, evaluated patient and recommended medical management with IV steroids, empiric antibiotics. No findings to warrant surgical intervention / no discernible abscess visualized. Patient was given empiric IV clindamycin, unasyn, and vancomycin while hospitalized and had improvement of her symptoms. Blood cultures have been without growth since 09/29. Patient is to complete x more days of x on discharge. Strep screen was positive for group A strep. Briefly spoke with Dr. Alberto over the phone, oral maxillofacial surgery, who stated he was available for tooth extraction if necessary however preferred to have the procedure as outpatient once patient was more clinically stable. Recommend to schedule appointment as soon as possible for sugical evaluation / tooth extraction with Dr. Alberto. [phone] Advised to repeat blood work in ~1 week to monitor white blood cell count and renal function. WBC on discharge: 29.5, peaked: 44 Patient was feeling better, neck pain/erythma/swelling improved, afebrile > 48 hours, leukocytosis improving, and was deemed stable for discharge with close follow up with ENT / OMFS. Patient's blood pressure was also noted to be elevated and was started on losartan with some improvement. Suspect a degree of her hypertension while hospitalized is due to discomfort/infection and IV fluids she received. She did have a mild MITA on admission which improved with IV hydration. (Creatinine peaked at 1.5 and was 0.89 on day of discharge). Medications: Augmentin and Clindamycin for 10 more days, to complete ~2 week course Tylenol #3 as needed for pain Losartan 50mg daily Follow up: PCP 3-5 days ENT ~[address] Alberto, [facility] [place], call to make appointment as soon as possible for surgical evaluation Followup: Broderick Alberto DDS, MD [ACTIVE - CAN ADMIT] - Marlene Christine DO [ACTIVE - CAN ADMIT] - 1 Week Bryson Vance DO [Primary Care Provider] - 2-3 Days Time spent managing pt's care (in minutes): 45
== END 2023-10-04 13:52 | disposition home or self-care (01) | DRG 872 ==
LOC: ER 16:55 → ERHOLD 23:04 → 3RD-ICU 10-01 00:01 → 2ND 10-03 17:58
PROVIDERS: ADMIT Internal Medicine; ATTEND Hospitalist
DX: A40.0 Sepsis due to streptococcus, group A (principal); J05.10 Acute epiglottitis without obstruction; L03.221 Cellulitis of neck; N17.9 Acute kidney failure, unspecified; I10 Essential (primary) hypertension; K04.7 Periapical abscess without sinus; F17.210 Nicotine dependence, cigarettes, uncomplicated
CPT/HCPCS: 36415; 70491; 71045; 71260; 80048; 80053; 80202; 81001; 82550; 82947; 83605; 83735; 84100; 84132; 84145; 85025; 85610; 85730; 86140; 86308; 87040; 87081; 93005; 99285; J0295; J0360; J1100; J1644; J2270; J2405; J2765; J3475; J3480; J7030; J7042; J7050; Q9967

== ENCOUNTER 2023-10-16 12:39 | Emergency (ER) | payer OTHER ==
--- OUTSIDE RECORDS SUMMARY | 2023-10-16 12:42 | XMS REPORT | Continuity of Care Document ---
Author Name Unknown Address [address] [place] [address] [employer] Address [address] [place] [address] [address] [place] [address] Care Team Providers Care Line Server Name Role Phone LUKAS TRERY Attending Clinician Unavailab le Payers Payer Name Policy Type Policy Number Effective Date Expirati on Date Source [facility] [employer] 9 [id number] 2023 00:00:00 Encounters Start Date/Time End Date/Time Encounter Type Admission Type Attending Clinicians Care Facility Care Department Encounter ID Source 2023-10-23 15:00:00 2023-10-23 15:00:00 Outpatient LUKAS TERRY [id number] [facility]
[2023-10-16] MEDS ORDERED: cloNIDine HCL 0.1 MG TAB ONE (12:54)
--- NOTE | 2023-10-16 13:47 | EDPHYS ---
Physician Documentation [facility] Name: Rosana Chávez Age: 62 yrs Sex: Female : 1960 Arrival Date: 10/16/2023 Time: 12:39 Bed 12 Private MD: ED Physician Alli Solorzano HPI: 10/15 12:50 This 62 yrs old Black Female presents to ER via EMS with complaints of Nose Bleed. ms3 12:50 62-year-old female with past medical history of hypertension presents to the emergency ms3 department for epistaxis. Patient states her nose began bleeding last night and has been bleeding intermittently today. Patient denies pain. Patient denies chest pain, shortness of breath, nausea, vomiting. Patient denies any alleviating or inciting factors. Historical: - Allergies: 12:45 No Known Allergies; as6 - Home Meds: 12:50 clindamycin HCl 300 mg Oral capsule [Active]; losartan 50 mg oral tablet 1 tab once mb9 [Active]; - PMHx: 12:45 Hypertensive disorder; as6 - PSHx: 12:45 section; as6 - Immunization history:: Adult Immunizations up to date. - Infectious Disease History:: Denies. - Social history:: Smoking status: Patient reports the use of cigarette tobacco products, smokes one pack cigarettes per day. ROS: 12:50 Constitutional: Negative for fever, and chills. Neck: Negative for injury, pain, and ms3 swelling, Cardiovascular: Negative for chest pain, and palpitations. Respiratory: Negative for shortness of breath, cough, wheezing, and pleuritic chest pain, 12:50 MS/Extremity: Negative for injury and deformity, Skin: Negative for injury, rash, and discoloration, 12:50 ENT: Positive for nose bleed, 12:50 All other systems are negative, Exam: 12:50 Constitutional: This is a well developed, well nourished patient who is awake, alert, ms3 and in no acute distress. Head/Face: Normocephalic, atraumatic. Chest/axilla: Normal chest wall appearance and motion. Nontender with no deformity. Cardiovascular: Regular rate and rhythm with a normal S1 and S2. No gallops, murmurs, or rubs. Normal PMI, no JVD. No pulse deficits. Respiratory: Lungs have equal breath sounds bilaterally, clear to auscultation and percussion. No rales, rhonchi or wheezes noted. No increased work of breathing, no retractions or nasal flaring. Abdomen/GI: Soft, non-tender, with normal bowel sounds. No distension or tympany. No guarding or rebound. No evidence of tenderness throughout. Skin: Warm, dry with normal turgor. Normal color with no rashes, no lesions, and no evidence of cellulitis. MS/ Extremity: Pulses equal, no cyanosis. Neurovascular intact. Full, normal range of motion. Vital Signs: 12:42 BP 198 / 93; Pulse 99; Resp 18 S; Temp 97.9(TE); Pulse Ox 98% on R/A; Weight 63.5 kg as6 (R); Height 5 ft. 5 in. (R); Pain 0/10; 12:52 BP 191 / 99; mb9 13:14 BP 186 / 87; Pulse 87; Resp 18; Pulse Ox 99% on R/A; mb9 12:42 Body Mass Index 23.30 (63.50 kg, 165.1 cm) as6 12:42 Pain Scale: Adult as6 Procedures: 13:47 Epistaxis treatment: A small amount of bleeding noted from Treated using direct ms3 pressure, nasal clamp, Bleeding stopped. MDM: 12:50 Differential diagnosis: spontaneous epistaxis. ms3 12:53 Patient medically screened. ms3 13:47 Data reviewed: vital signs, nurses notes, and as a result, I will discharge patient. ms3 Care significantly affected by the following chronic conditions: Hypertension. Counseling: I had a detailed discussion with the patient and/or guardian regarding the historical points, exam findings, and any diagnostic results supporting the discharge/admit diagnosis, the need for outpatient follow up, to return to the emergency department if symptoms worsen or persist or if there are any questions or concerns that arise at home. ED course: Discussed epistaxis treatment with patient. Patient to follow-up with Dr. Christine in 2 to 3 days. Patient understands and agrees with plan. All questions were answered. Return precautions discussed include worsening symptoms, or any other concerns. On reevaluation patient is alert and oriented x 4, no apparent distress, nontoxic-appearing, ambulatory in the emergency department, speaking full sentences, epistaxis resolved. Administered Medications: 12:56 Drug: cloNIDine PO 0.1 mg PO once Route: PO; mb9 13:21 Follow up: Response: No adverse reaction mb9 Disposition Summary: 10/16/23 13:47 Discharge Ordered Notes: Location: Home ms3 Condition: Stable ms3 Diagnosis - Epistaxis ms3 - Essential (primary) hypertension ms3 Followup: ms3 - With: Abbey Christine MD - When: 2 - 3 days - Reason: Recheck today's complaints Discharge Instructions: - Discharge Summary Sheet ms3 - Hypertension, Adult ms3 - Nosebleed, Adult, [id number] ms3 - DASH Eating Plan ms3 Forms: - Medication Reconciliation Form ms3 - Thank You Letter ms3 - Antibiotic Education ms3 - Prescription Opioid Use ms3 - Patient Portal Instructions ms3 - Leadership Thank You Letter ms3 Signatures: Alli Solorzano, DO ms3 Jeffry Blackwell RN RN as6 Kennedi Villarreal RN RN mb9
--- NOTE | 2023-10-16 13:47 | ER ---
Nurse's Notes [facility] Name: Rosana Chávez Age: 62 yrs Sex: Female : 1960 Arrival Date: 10/16/2023 Time: 12:39 Bed 12 Private MD: Diagnosis: Epistaxis;Essential (primary) hypertension Presentation: 10/15 12:45 Chief complaint: EMS states: called out for a nose bleed. at time of triage bleeding is as6 controlled. Coronavirus screen: At this time, the client does not indicate any symptoms associated with coronavirus-19. Ebola Screen: No symptoms or risks identified at this time. Initial Sepsis Screen: Does the patient meet any 2 criteria? No. Patient's initial sepsis screen is negative. Does the patient have a suspected source of infection? No. Patient's initial sepsis screen is negative. Risk Assessment: Do you want to hurt yourself or someone else? Patient reports no desire to harm self or others. Onset of symptoms was October 16, 2023. 12:45 Acuity: FABIOLA 4 as6 12:45 Method Of Arrival: EMS: [facility] as6 12:48 Care prior to arrival:. as6 12:50 Acuity: FABIOLA 3 mb9 Triage Assessment: 12:46 General: Appears in no apparent distress. Behavior is calm, cooperative. Pain: Denies as6 pain. Historical: - Allergies: 12:45 No Known Allergies; as6 - Home Meds: 12:50 clindamycin HCl 300 mg Oral capsule [Active]; losartan 50 mg oral tablet 1 tab once mb9 [Active]; - PMHx: 12:45 Hypertensive disorder; as6 - PSHx: 12:45 section; as6 - Immunization history:: Adult Immunizations up to date. - Infectious Disease History:: Denies. - Social history:: Smoking status: Patient reports the use of cigarette tobacco products, smokes one pack cigarettes per day. Screenin:50 [facility] ED Fall Risk Assessment (Adult) History of falling in the last 3 months, as6 including since admission No falls in past 3 months (0 pts) Confusion or Disorientation No (0 pts) Intoxicated or Sedated No (0 pts) Impaired Gait No (0 pts) Mobility Assist Device Used No (0 pt) Altered Elimination No (0 pt) Score/Fall Risk Level 0 - 2 = Low Risk Oriented to surroundings, Maintained a safe environment, Educated pt \T\ family on fall prevention, incl call for assistance when getting out of bed, Assessed \T\ reinforced patient's understanding of fall precautions, Hourly rounding (assess needs \T\ fall precautionary measures) done. Abuse screen: Denies threats or abuse. Denies injuries from another. Nutritional screening: No deficits noted. Tuberculosis screening: No symptoms or risk factors identified. Assessment: 12:45 Reassessment: nose clamp applied to pts nose. mb9 12:51 General: Appears in no apparent distress. Behavior is calm, cooperative. Pain: Denies mb9 pain. Neuro: Level of Consciousness is awake, alert, obeys commands, Oriented to person, place, time, situation, Appropriate for age. Cardiovascular: Denies chest pain, shortness of breath, Patient's skin is warm and dry. Respiratory: Airway is patent Respiratory effort is even, unlabored, Respiratory pattern is regular, symmetrical. GI: No signs and/or symptoms were reported involving the gastrointestinal system. : No signs and/or symptoms were reported regarding the genitourinary system. EENT: Nares with bleeding noted bilaterally. Derm: Skin is pink, warm \T\ dry. Musculoskeletal: Range of motion: intact in all extremities. 13:15 EENT: Nares no active bleeding noted. mb9 13:49 Reassessment: No changes from previously documented assessment. Patient and/or family mb9 updated on plan of care and expected duration. Pain level reassessed. Patient is alert, oriented x 3, equal unlabored respirations, skin warm/dry/pink. Vital Signs: 12:42 BP 198 / 93; Pulse 99; Resp 18 S; Temp 97.9(TE); Pulse Ox 98% on R/A; Weight 63.5 kg as6 (R); Height 5 ft. 5 in. (R); Pain 0/10; 12:52 BP 191 / 99; mb9 13:14 BP 186 / 87; Pulse 87; Resp 18; Pulse Ox 99% on R/A; mb9 12:42 Body Mass Index 23.30 (63.50 kg, 165.1 cm) as6 12:42 Pain Scale: Adult as6 ED Course: 12:42 Patient arrived in ED. as6 12:43 Alli Solorzano DO is Attending Physician. ms3 12:44 Arm band placed on. as6 12:46 Triage completed. as6 12:47 Placed in gown. Bed in low position. Call light in reach. Side rails up X 1. Client mb9 placed on continuous cardiac and pulse oximetry monitoring. NIBP monitoring applied. 12:49 Assist provider with nosebleed control using nasal clamp. as6 12:56 Kennedi Villarreal, RN is Primary Nurse. mb9 12:57 Provided Education on: press call light if needing anything. mb9 13:46 Abbey Christine MD is Referral Physician. ms3 13:49 Patient did not have IV access during this emergency room visit. mb9 Administered Medications: 12:56 Drug: cloNIDine PO 0.1 mg PO once Route: PO; mb9 13:21 Follow up: Response: No adverse reaction mb9 Medication: 12:50 VIS not applicable for this client. as6 Outcome: 13:47 Discharge ordered by . ms3 14:00 Discharged to home ambulatory, with family, mb9 14:00 Condition: stable 14:00 Discharge instructions given to patient, family, Instructed on discharge instructions, follow up and referral plans. Demonstrated understanding of instructions, follow-up care, 14:01 Patient left the ED. ema Signatures: Alli Solorzano DO DO ms3 Jeffry Blackwell, RN RN as6 Kennedi Villarreal, RN RN mb9
[2023-10-16 18:29] VITALS: BP 186/87; TEMP 97.9; O2SAT 99
== END 2023-10-16 14:01 | disposition home or self-care (01) ==
LOC: ER 12:39
DX: R04.0 Epistaxis (principal); I10 Essential (primary) hypertension; F17.210 Nicotine dependence, cigarettes, uncomplicated
CPT/HCPCS: 30901; 99284

== ENCOUNTER 2023-10-17 06:48 | Emergency (ER) | payer OTHER ==
[2023-10-17] MEDS ORDERED: OXYMETAZOLINE HCL 0.05% 15ML NAS ONE (07:11)
[2023-10-17 07:48] LABS: Absolute Basophils 0.2 K/uL (0-0.5); Absolute Eosinophils 0.1 K/uL (0-0.5); Absolute Lymphocytes (CBC) 2.9 K/uL (0.7-4.9); Absolute Monocytes 0.9 K/uL (0.1-1.3); Absolute Neutrophil 5.7 K/uL (1.8-8.0); Basophils % 2.4 % (0-1.3); Eosinophils % 1.3 % (0-4.4); Hemoglobin 8.9 g/dL (12.0-15.0); Lymphocytes % 29.1 % (15.3-44.8); MCH 31.5 pg (27.0-35.0); MCHC 35.5 g/dL (32.0-36.0); MCV 88.6 fL (80-100); MPV 7.1 fL (7.6-11.3); Monocytes % 9.6 % (3.3-12.3); Neutrophils % 57.6 % (41.7-73.7); Nucleated Red Blood Cells % 0.2 % (0-0); Platelets 607 thou/uL (152-406); RBC Red Blood Cell Count 2.83 M/uL (3.86-4.86); Red Cell Distribution Width 15.9 % (12.1-15.2)
[2023-10-17 08:19] LABS: Anion Gap 6.8 mEq/L (5.0-15.0); Potassium 2.8 mEq/L (3.5-5.1)
--- NOTE | 2023-10-17 08:31 | ER ---
Nurse's Notes [facility] Name: Rosana Chávez Age: 62 yrs Sex: Female : 1960 Arrival Date: 10/17/2023 Time: 06:48 Bed 17 Private MD: Diagnosis: Epistaxis;Hypokalemia Presentation: 10/16 06:56 Chief complaint: Patient states: I have been having nose bleeding off and on for the 1 past three days. 06:56 Coronavirus screen: Vaccine status:. Ebola Screen: No symptoms or risks identified at [facility] this time. Initial Sepsis Screen: Does the patient meet any 2 criteria? No. Patient's initial sepsis screen is negative. Does the patient have a suspected source of infection? No. Patient's initial sepsis screen is negative. Risk Assessment: Do you want to hurt yourself or someone else? Patient reports no desire to harm self or others. Onset of symptoms was October 17, 2023. 06:56 Method Of Arrival: Ambulatory [facility] 06:56 Acuity: FABIOLA 3 ha1 Triage Assessment: 06:56 General: Appears comfortable, Behavior is calm, cooperative. Pain: Denies pain. EENT: ha1 Reports nose bleed . Neuro: Level of Consciousness is awake, alert, obeys commands, Oriented to person, place, time, situation. Cardiovascular: Patient's skin is warm and dry. Respiratory: Airway is patent Respiratory effort is even, unlabored, Respiratory pattern is regular, symmetrical. Musculoskeletal: Circulation, motion, and sensation intact. Range of motion: intact in all extremities. Historical: - Allergies: 07:04 No Known Allergies; ha1 - Home Meds: 08:34 losartan 50 mg Oral tablet 1 tab once [Active]; bp - PMHx: 07:04 Hypertensive disorder; ha1 - PSHx: 07:04 section; ha1 - Immunization history:: Adult Immunizations up to date. - Infectious Disease History:: Denies. - Social history:: Smoking status: Patient reports the use of cigarette tobacco products, denies chronic smoking, but will smoke occasionally. Screenin:05 Abuse screen: Denies threats or abuse. Denies injuries from another. Nutritional ha1 screening: No deficits noted. Tuberculosis screening: No symptoms or risk factors identified. 08:[address] [facility] ED Fall Risk Assessment (Adult) History of falling in the last 3 months, bp including since admission No falls in past 3 months (0 pts). Assessment: 07:00 General: Appears in no apparent distress. Behavior is calm, cooperative, appropriate bp for age. Pain: Denies pain. EENT: Nares with bleeding noted. Vital Signs: 06:56 BP 155 / 88; Pulse 107; Resp 17 S; Temp 97.9(T); Pulse Ox 98% on R/A; Weight 63.5 kg; ha1 08:02 BP 162 / 84; Pulse 95; Resp 16; Pulse Ox 100% ; bp 08:33 BP 168 / 78; Pulse 95; Resp 16; Pulse Ox 100% ; bp ED Course: 06:51 Patient arrived in ED. gm2 06:56 Patient has correct armband on for positive identification. Placed in gown. Bed in low ha1 position. Call light in reach. Side rails up X 1. 06:59 Reid Nash MD is Attending Physician. ec2 07:00 Arm band placed on. bp 07:04 Triage completed. ha1 07:23 Fred Julio, RN is Primary Nurse. bp 07:24 Provided Education on: n/a. bp 07:24 BMP Sent. bp 07:24 CBC with Diff Sent. bp 07:24 Initial lab(s) drawn, by me, sent to lab. bp 08:29 Assist provider with nosebleed control using Afrin sprays, rhino rocket placed for bp extensive packing needs, Bleeding from right nares. Set up for procedure. Performed by Reid Nash MD Bleeding stopped. Patient tolerated well. 08:30 Abbey Christine MD is Referral Physician. ec2 08:34 Patient did not have IV access during this emergency room visit. bp Administered Medications: 07:24 Drug: Oxymetazoline Intranasal Drops (0.05 %) 2 sprays Intranasal once Route: bp Intranasal; Site: right nare; Medication: 08:34 VIS not applicable for this client. bp Outcome: 08:30 Discharge ordered by . ec2 08:35 Discharged to home ambulatory, bp 08:35 Condition: stable 08:35 Discharge instructions given to patient, Instructed on discharge instructions, follow up and referral plans. Demonstrated understanding of instructions, follow-up care, 08:58 Patient left the ED. bp Signatures: Fred Julio, RN RN bp Kaylynn Torres RN RN ha1 Reid Nash MD MD ec2 Christen De La Cruz 2 Corrections: (The following items were deleted from the chart) 07:10 06:56 Acuity: FABIOLA 5 ha1 ha1
--- NOTE | 2023-10-17 08:31 | EDPHYS ---
Physician Documentation [facility] Name: Rosana Chávez Age: 62 yrs Sex: Female : 1960 Arrival Date: 10/17/2023 Time: 06:48 Bed 17 Private MD: ED Physician Reid Nash HPI: 10/16 07:07 This 62 yrs old Black Female presents to ER via Ambulatory with complaints of Nose ec2 Bleed. 07:07 Patient arrives today for evaluation of bleeding from the bilateral nares. Patient ec2 reports that she been having bleeding for the past several days. Patient reports no trauma or injury, denies any picking of the nose, denies any cough or cold symptoms, no fevers or chills, no issues with sneezing. Patient reports otherwise recent diagnosis of cellulitis, recent admission, has improved from a skin standpoint. Patient reports no fevers or chills.. Historical: - Allergies: 07:04 No Known Allergies; ha1 - Home Meds: 08:34 losartan 50 mg Oral tablet 1 tab once [Active]; bp - PMHx: 07:04 Hypertensive disorder; ha1 - PSHx: 07:04 section; ha1 - Immunization history:: Adult Immunizations up to date. - Infectious Disease History:: Denies. - Social history:: Smoking status: Patient reports the use of cigarette tobacco products, denies chronic smoking, but will smoke occasionally. ROS: 07:07 Constitutional: as per hpi ec2 Exam: 07:07 Constitutional: Constitutional: Well appearing, non-toxic. HENT: blood present in the ec2 BL nares, no active bleeding, no evidence of trauma, boggy turbinates. Cardiovascular: tachycardia. Resp: no resp distress. Abdominal: non-distended. Skin: no evidence of skin rashes. Vital Signs: 06:56 BP 155 / 88; Pulse 107; Resp 17 S; Temp 97.9(T); Pulse Ox 98% on R/A; Weight 63.5 kg; ha1 08:02 BP 162 / 84; Pulse 95; Resp 16; Pulse Ox 100% ; bp 08:33 BP 168 / 78; Pulse 95; Resp 16; Pulse Ox 100% ; bp Procedures: 07:18 Epistaxis treatment: A small amount of bleeding noted from both nares. Treated using ec2 Oxymetazoline sprays, direct pressure, Bleeding improved. MDM: 07:00 Patient medically screened. ec2 07:07 Data reviewed: vital signs. ED course: Patient arrives today for evaluation of bleeding ec2 from bilateral nares. Examination remarkable for well-appearing nontoxic bedroom with slight tachycardia appreciated along with HEENT findings as noted above. Will obtain lab work given the patient's slight tachycardia. Evaluation for hematologic abnormalities such as anemia, electrolyte services. Patient with recent diagnosis of cellulitis that has been improvement, doubt sepsis, initial patient without systemic signs and symptoms.. 07:19 ED course: I evacuated large clots from the bilateral naris, applied a oxymetolazone ec2 with improvement in bleeding.. 08:02 ED course: Hemoglobin noted to be 8.9, recent blood counts with a hemoglobin of 13. ec2 Patient with no symptoms of anemia, denies any blood in the stool.. 08:30 ED course: Slight hypokalemia noted. On examination patient with trace bleeding noted, ec2 placed Rhino Rocket, will have patient follow-up with ENT return for removal. Will discharge home. Return precautions given. Instructed on anemia return precautions.. 04 07:06 Order name: CBC with Diff ec2 10/16 07:06 Order name: BMP; Complete Time: 08:31 ec2 Administered Medications: 07:24 Drug: Oxymetazoline Intranasal Drops (0.05 %) 2 sprays Intranasal once Route: bp Intranasal; Site: right nare; Disposition Summary: 10/17/23 08:30 Discharge Ordered Notes: Location: Home ec2 Condition: Stable ec2 Diagnosis - Epistaxis ec2 - Hypokalemia ec2 Followup: ec2 - With: Abbey Christine MD - When: - Reason: Recheck today's complaints Discharge Instructions: - Discharge Summary Sheet ec2 - Nosebleed, Adult, [id number] ec2 Forms: - Medication Reconciliation Form ec2 - Thank You Letter ec2 - Antibiotic Education ec2 - Prescription Opioid Use ec2 - Patient Portal Instructions ec2 - Leadership Thank You Letter ec2 Signatures: Dispatcher [employer] Fred Tay RN RN bp Ayala, Heidy, RN RN ha1 Reid Nash MD MD ec2
[2023-10-17 09:23] LABS: Blood Morphology Comment NOT SEEN (NOT SEEN); Platelet Estimate ADEQ; White Blood Cell Scan OK (OK)
[2023-10-17 11:14] VITALS: BP 168/78; TEMP 97.9; O2SAT 100
== END 2023-10-17 08:58 | disposition home or self-care (01) ==
LOC: ER 06:48
DX: R04.0 Epistaxis (principal); E87.6 Hypokalemia; I10 Essential (primary) hypertension; F17.210 Nicotine dependence, cigarettes, uncomplicated
CPT/HCPCS: 30901; 36415; 80048; 85025; 99284

== ENCOUNTER 2023-10-18 09:47 | Emergency (ER) | payer OTHER ==
--- OUTSIDE RECORDS SUMMARY | 2023-10-18 09:49 | XMS REPORT | Continuity of Care Document ---
Author Name Unknown Address [address] [id number] [facility] thconnect Address [address] [place] [address] Care Team Providers Care Facing Machine Operator Name Role Phone LUKAS TERRY Attending Clinician TYSHAWN Horton Attending Clinician VELASQUEZ Denny Attending Clinician Sam Payers Payer Name Policy Type Policy Number Effective Date Expirati on Date Source [facility] [employer] [facility] [employer] 9 [id number] 2023 00:00:00 Encounters Start Date/Time End Date/Time Encounter Type Admission Type Attending Clinicians Care Facility Care Department Encounter ID Source 2023-10-23 15:00:00 2023-10-23 15:00:00 Outpatient LUKAS TERRY [id number] [facility] 2023-10-23 15:00:00 2023-10-23 15:00:00 Outpatient LUKAS TERRY [id number] [facility] 2023-10-19 13:30:00 2023-10-19 13:30:00 Outpatient TYSHAWN VILLAGRAN [id number] [facility] 2023-10-18 00:00:00 2023-10-18 00:00:00 Outpatient VELASQUEZ VILLAGRAN [id number] [facility]
--- NOTE | 2023-10-18 10:19 | ER ---
Nurse's Notes [facility] Name: Rosana Chávez Age: 62 yrs Sex: Female : 1960 Arrival Date: 10/18/2023 Time: 09:47 Bed 15 Private MD: Diagnosis: Epistaxis Presentation: 10/17 10:40 Chief complaint: Patient states: nosebleed since Monday. Coronavirus screen: Client cp4 denies travel out of the [place] in the last 14 days. 10:40 Method Of Arrival: Ambulatory cp4 10:40 Ebola Screen: Patient negative for fever greater than or equal to 101.5 degrees cp4 Fahrenheit, and additional compatible Ebola Virus Disease symptoms Patient denies exposure to infectious person. Patient denies travel to an Ebola-affected area in the 21 days before illness onset. No symptoms or risks identified at this time. Initial Sepsis Screen: Does the patient meet any 2 criteria? No. Patient's initial sepsis screen is negative. Does the patient have a suspected source of infection? No. Patient's initial sepsis screen is negative. Risk Assessment: Do you want to hurt yourself or someone else? Patient reports no desire to harm self or others. Onset of symptoms was October 15, 2023. 10:40 Acuity: FABIOLA 4 cp4 Triage Assessment: 10:42 General: Appears uncomfortable, Behavior is calm, cooperative, appropriate for age. cp4 Pain: Denies pain. EENT: Nares with bleeding noted. Historical: - Home Meds: 10:42 losartan 50 mg Oral tablet 1 tab once [Active]; cp4 - PMHx: 10:42 Hypertensive disorder; cp4 - PSHx: 10:42 section; cp4 - Immunization history:: Adult Immunizations up to date. - Infectious Disease History:: Denies. CDIFF, C. Auris, ESBL, MRSA (w/in 1 year), VRE (w/in 1 year), TB, . - Social history:: Smoking status: Patient denies any tobacco usage or history of. Screenin:43 [facility] ED Fall Risk Assessment (Adult) History of falling in the last 3 months, cp4 including since admission No falls in past 3 months (0 pts) Confusion or Disorientation No (0 pts) Intoxicated or Sedated No (0 pts) Impaired Gait No (0 pts) Mobility Assist Device Used No (0 pt) Altered Elimination No (0 pt) Score/Fall Risk Level 0 - 2 = Low Risk Oriented to surroundings, Maintained a safe environment, Assessed \T\ reinforced patient's understanding of fall precautions, Hourly rounding (assess needs \T\ fall precautionary measures) done. Abuse screen: Denies threats or abuse. Nutritional screening: No deficits noted. Tuberculosis screening: No symptoms or risk factors identified. Assessment: 10:43 Reassessment: No changes from previously documented assessment. General: Appears cp4 uncomfortable. Pain: Denies pain. Vital Signs: 10:40 BP 147 / 74; Pulse 104; Resp 18; Temp 98; Pulse Ox 100% ; cp4 ED Course: 09:51 Patient arrived in ED. mr 09:52 Reid Nash MD is Attending Physician. ec2 10:01 Arm band placed on Patient placed in an exam room, on a stretcher. ll1 10:03 Anita Trotter is Primary Nurse. cp4 10:18 Abbey Christine MD is Referral Physician. ec2 10:42 Triage completed. cp4 10:43 Bed in low position. Call light in reach. Side rails up X 1. Provided Education on: cp4 nosebleed. 10:43 No provider procedures requiring assistance completed. Patient did not have IV access cp4 during this emergency room visit. Administered Medications: No medications were administered Medication: 10:43 VIS not applicable for this client. cp4 Outcome: 10:18 Discharge ordered by MD. ec2 10:43 Discharged to home ambulatory, cp4 10:43 Condition: stable 10:43 Discharge instructions given to patient, Instructed on discharge instructions, follow up and referral plans. medication usage, Demonstrated understanding of instructions, follow-up care, medications, Prescriptions given X 1, 10:46 Patient left the ED. cp4 Signatures: Kennedi Campbell, Balbir Reg mr Sendy Avila, RN RN ll1 Reid Nash MD MD ec2 Anita Trotter cp4
--- NOTE | 2023-10-18 10:19 | EDPHYS ---
Physician Documentation [facility] Name: Rosana Chávez Age: 62 yrs Sex: Female : 1960 Arrival Date: 10/18/2023 Time: 09:47 Bed 15 Private MD: ED Physician Reid Nash HPI: 10/17 10:15 This 62 yrs old Black Female presents to ER via Unassigned with complaints of Nose ec2 Bleed. 10:15 Patient arrives today for evaluation of epistaxis. Patient was seen here yesterday by ec2 me, had a Rhino Rocket placed, states that she had had the Rhino Rocket fall out and then subsequently started bleeding. Patient complaining of significant sneezing which is what caused the Rhino Rocket to follow-up. Denies any lightheadedness, denies any anemia symptoms.. Historical: - Home Meds: 10:42 losartan 50 mg Oral tablet 1 tab once [Active]; cp4 - PMHx: 10:42 Hypertensive disorder; cp4 - PSHx: 10:42 section; cp4 - Immunization history:: Adult Immunizations up to date. - Infectious Disease History:: Denies. CDIFF, C. Auris, ESBL, MRSA (w/in 1 year), VRE (w/in 1 year), TB, . - Social history:: Smoking status: Patient denies any tobacco usage or history of. ROS: 10:15 Constitutional: as per hpi ec2 Exam: 10:15 Constitutional: GEN: NAD Head: atraumatic Eyes: EOMI Ears: External ears are normal. ec2 Nose: Small amount of blood present in the bilateral nares CV: regular rate LUNGS: no respiratory distress ABD: non-distended SKIN: no evidence of rashes MSK: no evidence of trauma NEURO: moves all extremities equally Vital Signs: 10:40 BP 147 / 74; Pulse 104; Resp 18; Temp 98; Pulse Ox 100% ; cp4 Procedures: 10:15 Epistaxis treatment: A small amount of bleeding noted from Treated using nasal clamp, ec2 anterior packing, nasal tampon, Bleeding stopped. MDM: 10:03 Patient medically screened. ec2 10:15 Data reviewed: vital signs. ED course: Patient arrives today for evaluation of bleeding ec2 from bilateral nares after accidentally removing her Rhino Rocket. Examination shows small amount of bleeding in the bilateral nares. I placed bilateral Rhino Rocket's to help with bleeding and was able to control bleeding. I was able to advance it more posteriorly than yesterday I feel this will help patient's bleeding and hopefully keep the rocket in place. Patient has follow-up with PCP tomorrow as well.. Administered Medications: No medications were administered Disposition Summary: 10/18/23 10:18 Discharge Ordered Notes: Location: Home ec2 Condition: Stable ec2 Diagnosis - Epistaxis ec2 Followup: ec2 - With: Private Physician - When: - Reason: Re-evaluation by your physician Followup: ec2 - With: Abbey Christine MD - When: - Reason: Recheck today's complaints Discharge Instructions: - Discharge Summary Sheet ec2 - Nosebleed, Adult, [id number] ec2 Forms: - Medication Reconciliation Form ec2 - Thank You Letter ec2 - Antibiotic Education ec2 - Prescription Opioid Use ec2 - Patient Portal Instructions ec2 - Leadership Thank You Letter ec2 Prescriptions: - Zyrtec 10 mg Oral Tablet - take 1 tablet ORAL route once daily As needed; 20 tablet; Refills: 0, Product ec2 Selection Permitted Signatures: Reid Nash MD MD ec2 Anita Trotter cp4
[2023-10-18 12:30] VITALS: BP 147/74; TEMP 98; O2SAT 100
== END 2023-10-18 10:46 | disposition home or self-care (01) ==
LOC: ER 09:47
PROC: 2Y41X5Z Packing of Nasal Region using Packing Material (ICD-10-PCS; principal; 2023-10-18)
DX: R04.0 Epistaxis (principal); I10 Essential (primary) hypertension